=== PATIENT | female | born 1940 | race African-American/Black ===

== ENCOUNTER 2021-07-07 13:26 | Emergency (ER) | payer OTHER ==
[2021-07-07 13:33] VITALS: TEMP 98; BMI 21.9
[2021-07-07] MEDS ORDERED: SODIUM CHLORIDE 0.9% 500 ML INFUS.BAG IV ONE (14:37)
[2021-07-07] MEDS ORDERED: LOPERAMIDE HCL 2 MG CAPSULE PO ONE (14:38)
[2021-07-07] MEDS ORDERED: ONDANSETRON 4 MG/2 ML VIAL IVPUSH ONE (15:54)
[2021-07-07] MEDS ORDERED: LOPERAMIDE HCL 2 MG CAPSULE ONE (16:02)
[2021-07-07] MEDS ORDERED: ONDANSETRON 4 MG/2 ML VIAL ONE (16:34)
[2021-07-07 16:47] LABS: BASO % 0.6 % (0-2.0); EOS % 0.8 % (0-4.5); HEMATOCRIT 46.2 % (32.4-45.2); HEMOGLOBIN 14.9 GM/dL (10.7-15.3); LYMPH % 36.8 % (8-40); MCH 28.1 pg (25.7-33.7); MCHC 32.2 g/dl (32.0-36.0); MEAN CELL VOLUME 87.4 fl (80-96); MONO % 5.6 % (3.8-10.2); NEUT % 56.2 % (42.8-82.8); PLATELET COUNT 150 10^3/uL (134-434); RBC 5.29 M/mm3 (3.60-5.2); WHITE BLOOD COUNT 4.8 K/mm3 (4.0-10.0)
[2021-07-07 17:14] LABS: CHLORIDE 104 mmol/L (98-107); SODIUM 139 mmol/L (136-145)
[2021-07-07 17:16] LABS: ALBUMIN 4.2 g/dl (3.4-5.0); ANION GAP 8 MMOL/L (8-16); BLOOD UREA NITROGEN 9.1 mg/dL (7-18); CALCIUM 9.6 mg/dL (8.5-10.1); CO2 28 mmol/L (21-32)
[2021-07-07 17:17] LABS: GLUCOSE,RANDOM 79 mg/dL (74-106)
[2021-07-07 17:19] LABS: CREATININE 0.9 mg/dL (0.55-1.3); SGOT/AST 27 U/L (15-37); SGPT/ALT 30 U/L (13-61)
[2021-07-07 17:21] LABS: BILIRUBIN,TOTAL 0.6 mg/dL (0.2-1); TOT PROT 8.2 g/dl (6.4-8.2)
[2021-07-07 17:22] LABS: ALK PHOS 86 U/L (45-117)
[2021-07-07 19:46] VITALS: BP 155/75; PULSE 84
== END 2021-07-07 19:40 | disposition home or self-care (01) ==
LOC: JER 13:26
DX: R10.84 Generalized abdominal pain (principal); R19.7 Diarrhea, unspecified; R11.0 Nausea
CPT/HCPCS: 36415; 80053; 82550; 84484; 85025; 93005; 93010; 99284-25; C9803; U0003; U0005

== ENCOUNTER 2022-06-30 14:13 | Inpatient (IN) | payer OTHER ==
[2022-06-30 20:56] LABS: HEMATOCRIT 31.4 % (32.4-45.2); HEMOGLOBIN 9.5 GM/dL (10.7-15.3); MCH 24.6 pg (25.7-33.7); MCHC 30.3 g/dl (32.0-36.0); MEAN CELL VOLUME 81.1 fl (80-96); MEAN PLT VOLUME 8.1 fl (7.5-11.1); PLATELET COUNT 252 10^3/uL (134-434); RBC 3.87 M/mm3 (3.60-5.2); WHITE BLOOD COUNT 5.8 K/mm3 (4.0-10.0)
[2022-06-30 21:13] LABS: ALBUMIN 4.1 g/dl (3.4-5.0); BLOOD UREA NITROGEN 22.4 mg/dL (7-18); CALCIUM 9.4 mg/dL (8.5-10.1); MAGNESIUM 2.2 mg/dL (1.8-2.4)
[2022-06-30 21:16] LABS: CREATININE 1.2 mg/dL (0.55-1.3); PHOSPHOROUS 3.1 mg/dL (2.5-4.9)
[2022-06-30 21:18] LABS: BILIRUBIN,TOTAL 0.8 mg/dL (0.2-1); TOT PROT 7.8 g/dl (6.4-8.2)
[2022-06-30 22:41] LABS: EPI CELLS >36 /uL (0-25.1); HYALINE CASTS 2 /uL (0-3.1); PH,URINE 5.5 (5.0-8.0); URINE APPEARANCE CLEAR; URINE BACTERIA 429 /uL (0-1359); URINE BILIRUBIN NEGATIVE (NEGATIVE); URINE COLOR YELLOW; URINE GLUCOSE (UA) NEGATIVE (NEGATIVE); URINE KETONE TRACE (NEGATIVE); URINE LEUK ESTERASE 2+ (NEGATIVE); URINE NITRITE NEGATIVE (NEGATIVE); URINE PROTEIN 1+ (NEGATIVE); URINE WBC 62 /uL (0-25.8)
[2022-06-30 22:43] LABS: URINE RBC 19.4 /uL (0-23.9)
[2022-07-01] MEDS ORDERED: DOCUSATE SODIUM 100 MG CAPSULE (FP) PO PRN (00:13)
[2022-07-01] MEDS ORDERED: ALBUTEROL SO4 2.5/IPRATROPIUM 0.5 INH SOL 3 ML VIAL.NEB. NEB SCH (00:30)
[2022-07-01 00:32] LABS: INR 2.4 (0.83-1.09); PROTHROMBIN TIME (PATIENT) 27.9 SEC (9.7-13.0)
[2022-07-01 00:34] LABS: ACTIVATED PTT 37.4 SECONDS (25.2-36.5)
[2022-07-01] MEDS ORDERED: ACETAMINOPHEN INJECTION 100 ML IVPB ONE (02:27)
[2022-07-01] MEDS: ACETAMINOPHEN 1000 MG/100 ML BAG IVPB PRN ×2 (03:32→22:44)
[2022-07-01] MEDS: LIDOCAINE 5% TOPICAL PATCH TP SCH ×2 (03:37→10:02)
[2022-07-01] MEDS: MELATONIN 5 MG TABLETS PO PRN ×2 (03:38→22:55)
[2022-07-01] MEDS ORDERED: oxyCODONE HCL 5 MG TABLET PO ONE (05:22)
[2022-07-01] MEDS ORDERED: oxyCODONE HCL 5 MG TABLET ONE (05:26)
[2022-07-01] MEDS ORDERED: traMADol HCL 50 MG TABLET PO ONE (05:41)
[2022-07-01] MEDS ORDERED: FUROSEMIDE 40 MG TABLET (FP) ONE ×2 (09:14→10:31)
[2022-07-01] MEDS ORDERED: DIGOXIN 0.125 MG TABLET ONE ×2 (09:14→10:31)
[2022-07-01] MEDS: DIGOXIN 0.125 MG TABLET PO SCH (09:35)
[2022-07-01] MEDS: FUROSEMIDE 40 MG TABLET (FP) PO SCH (09:35)
[2022-07-01 09:58] LABS: INR 3.19 (0.83-1.09); PROTHROMBIN TIME (PATIENT) 37.1 SEC (9.7-13.0)
[2022-07-01] MEDS ORDERED: APIXABAN 5 MG TABLET PO SCH (10:00)
[2022-07-01 10:01] LABS: ACTIVATED PTT 40.5 SECONDS (25.2-36.5)
[2022-07-01] MEDS ORDERED: cefTRIAXone SODIUM 1 GM VIAL ONE (15:48)
[2022-07-01] MEDS: CEFTRIAXONE 1 GM in DEXTROSE 5%-WATER - 50 ML IVPB SCH (15:54)
[2022-07-01] MEDS: APIXABAN 5 MG TABLET PO SCH (22:55)
[2022-07-01] MEDS: ATORVASTATIN CA 40 MG TABLET (FP) PO SCH (22:55)
[2022-07-01] MEDS: LIDOCAINE PATCH REMOVAL MC SCH (22:56)
[2022-07-02 01:40] VITALS: BMI 22.4
[2022-07-02] MEDS ORDERED: OLANZapine 2.5 MG TABLET PO SCH (11:45)
[2022-07-02] MEDS: FUROSEMIDE 40 MG TABLET (FP) PO SCH ×2 (11:48→12:22)
[2022-07-02] MEDS: CEFTRIAXONE 1 GM in DEXTROSE 5%-WATER - 50 ML IVPB SCH (11:48)
[2022-07-02] MEDS: DIGOXIN 0.125 MG TABLET PO SCH (11:54)
[2022-07-02] MEDS: APIXABAN 5 MG TABLET PO SCH ×3 (11:54→21:24)
[2022-07-02] MEDS: LIDOCAINE 5% TOPICAL PATCH TP SCH (12:15)
[2022-07-02 14:59] LABS: HEMATOCRIT 31.8 % (32.4-45.2); HEMOGLOBIN 9.7 GM/dL (10.7-15.3); MCH 24.6 pg (25.7-33.7); MCHC 30.6 g/dl (32.0-36.0); MEAN CELL VOLUME 80.5 fl (80-96); MEAN PLT VOLUME 8.1 fl (7.5-11.1); PLATELET COUNT 253 10^3/uL (134-434); RBC 3.95 M/mm3 (3.60-5.2); WHITE BLOOD COUNT 5.2 K/mm3 (4.0-10.0)
[2022-07-02 15:34] LABS: INR 2.26 (0.83-1.09); PROTHROMBIN TIME (PATIENT) 26.2 SEC (9.7-13.0)
[2022-07-02 15:36] LABS: ACTIVATED PTT 36.5 SECONDS (25.2-36.5)
[2022-07-02 15:37] LABS: BLOOD UREA NITROGEN 15.1 mg/dL (7-18)
[2022-07-02 15:38] LABS: CALCIUM 9.4 mg/dL (8.5-10.1)
[2022-07-02 15:39] LABS: ALBUMIN 4.1 g/dl (3.4-5.0)
[2022-07-02 15:42] LABS: BILIRUBIN,TOTAL 0.9 mg/dL (0.2-1)
[2022-07-02] MEDS ORDERED: IRON SUCROSE INJECTION 200 MG in SODIUM CHLORIDE 90 ML IVPB ONE (17:00)
[2022-07-02] MEDS: DONEPEZIL HCL 5 MG TABLET (FP) PO SCH (17:24)
[2022-07-02] MEDS: ATORVASTATIN CA 40 MG TABLET (FP) PO SCH (21:25)
[2022-07-02] MEDS: QUEtiapine FUMARATE 25 MG TABLET PO SCH (21:26)
[2022-07-02] MEDS: MELATONIN 5 MG TABLETS PO PRN (21:27)
[2022-07-02] MEDS: LIDOCAINE PATCH REMOVAL MC SCH (21:35)
[2022-07-03] MEDS: APIXABAN 5 MG TABLET PO SCH ×2 (09:29→21:47)
[2022-07-03] MEDS: DONEPEZIL HCL 5 MG TABLET (FP) PO SCH (09:29)
[2022-07-03] MEDS: DIGOXIN 0.125 MG TABLET PO SCH (09:30)
[2022-07-03] MEDS: QUEtiapine FUMARATE 25 MG TABLET PO SCH ×2 (09:31→21:47)
[2022-07-03] MEDS: CEFTRIAXONE 1 GM in DEXTROSE 5%-WATER - 50 ML IVPB SCH (09:31)
[2022-07-03] MEDS: LIDOCAINE 5% TOPICAL PATCH TP SCH (09:31)
[2022-07-03] MEDS ORDERED: THIAMINE HCL 200 MG/2 ML VIAL IM SCH (10:00)
[2022-07-03 15:55] VITALS: RESP 18
[2022-07-03] MEDS: LIDOCAINE PATCH REMOVAL MC SCH (21:47)
[2022-07-03] MEDS: ATORVASTATIN CA 40 MG TABLET (FP) PO SCH (21:47)
[2022-07-03] MEDS: MELATONIN 5 MG TABLETS PO PRN (21:47)
[2022-07-04] MEDS ORDERED: LACTULOSE 20 GM/30 ML UDC (FOR ORAL USE ONLY) PO PRN (08:22)
[2022-07-04] MEDS: APIXABAN 5 MG TABLET PO SCH ×2 (10:05→12:29)
[2022-07-04] MEDS: QUEtiapine FUMARATE 25 MG TABLET PO SCH ×2 (10:05→12:31)
[2022-07-04] MEDS: DONEPEZIL HCL 5 MG TABLET (FP) PO SCH (10:05)
[2022-07-04] MEDS: DIGOXIN 0.125 MG TABLET PO SCH ×2 (10:05→12:30)
[2022-07-04] MEDS: LIDOCAINE 5% TOPICAL PATCH TP SCH (10:05)
[2022-07-04 15:48] VITALS: BP 122/64; PULSE 75; TEMP 98.6
[2022-07-04] MEDS ORDERED: POTASSIUM CHLORIDE TABS 20 MEQ TABLET.ER (FP) PO ONE (15:52)
[2022-07-04] MEDS ORDERED: FUROSEMIDE 20 MG TABLET (FP) PO ONE (15:52)
[2022-07-07 14:07] LABS: THYROID STIM IMMUNOGLOBULIN <0.10 IU/L (0.00-0.55)
== END 2022-07-04 18:32 | disposition home health service (06) | DRG 71 ==
LOC: JER 14:13 → JERBED 23:37 → J4W 07-01 20:54 → J5S 07-02 18:21 → J4W 07-02 18:22
PROVIDERS: ADMIT Internal Medicine; ATTEND Family Medicine
DX: G93.41 Metabolic encephalopathy (principal); D68.9 Coagulation defect, unspecified; I24.8 Other forms of acute ischemic heart disease; R07.9 Chest pain, unspecified; R00.2 Palpitations; R79.89 Other specified abnormal findings of blood chemistry; I48.91 Unspecified atrial fibrillation; I10 Essential (primary) hypertension; E78.5 Hyperlipidemia, unspecified
CPT/HCPCS: 0241U-QW; 36415; 70450-TC; 70551-TC; 71045-TC-FY; 71046-TC-FY; 72070-TC-FY; 72100-TC-FY; 80053; 80061; 80162; 81003; 82140; 82607; 82728; 83036; 83540; 83550; 83735; 84100; 84439; 84443; 84445; 84481; 84484; 85027; 85379; 85610; 85730; 87086; 93005; 93010; 99285-25; J1756

== ENCOUNTER 2022-11-26 11:24 | Day surgery (SDC) | payer OTHER ==
[2022-11-26] MEDS ORDERED: FERRIC CARBOXYMALTOSE 750 MG in SODIUM CHLORIDE 250 ML IVPB ONE (12:15)
[2022-11-26 13:46] VITALS: BP 155/54; PULSE 74; RESP 18; TEMP 98.5
== END 2022-11-26 13:57 | disposition home or self-care (01) ==
LOC: FM/S 11:24 → FINFUSION 11:24
PROVIDERS: ATTEND Family Medicine
PROC: 3E033GC Introduction of Other Therapeutic Substance into Peripheral Vein, Percutaneous Approach (ICD-10-PCS; principal; 2022-11-26)
DX: D50.9 Iron deficiency anemia, unspecified (principal)
CPT/HCPCS: 96365; J1439

== ENCOUNTER 2022-12-03 11:13 | Day surgery (SDC) | payer OTHER ==
[2022-12-03] MEDS ORDERED: FERRIC CARBOXYMALTOSE 750 MG in SODIUM CHLORIDE 250 ML IVPB ONE (12:00)
[2022-12-03 12:34] VITALS: BP 152/72; PULSE 71; RESP 18; TEMP 97.4
== END 2022-12-03 13:30 | disposition home or self-care (01) ==
LOC: FINFUSION 11:13 → FM/S 11:15 → FINFUSION 13:30
PROVIDERS: ATTEND Family Medicine
PROC: 3E033GC Introduction of Other Therapeutic Substance into Peripheral Vein, Percutaneous Approach (ICD-10-PCS; principal; 2022-12-03)
DX: D50.9 Iron deficiency anemia, unspecified (principal); E61.1 Iron deficiency
CPT/HCPCS: 96365; J1439

== ENCOUNTER 2024-04-04 18:34 | Inpatient (IN) | payer OTHER ==
[2024-04-04] MEDS ORDERED: ACETAMINOPHEN 325 MG TABLET (FP) ONE (20:36)
[2024-04-04] MEDS ORDERED: ASPIRIN 325 MG TABLET ONE (20:43)
[2024-04-04 20:52] LABS: INR 1.19 (0.83-1.09); PROTHROMBIN TIME (PATIENT) 13.6 SEC (9.7-13.0)
[2024-04-04 20:55] LABS: ACTIVATED PTT 32.5 SECONDS (25.2-36.5)
[2024-04-04 21:01] LABS: CHLORIDE 86 mmol/L (98-107); POTASSIUM 4.6 mmol/L (3.5-5.1); SODIUM 123 mmol/L (136-145)
[2024-04-04 21:02] LABS: ANION GAP 6 mmol/L (4-13); CALCIUM 9.1 mg/dL (8.5-10.1); CO2 30 mmol/L (21-32)
[2024-04-04 21:03] LABS: ALBUMIN 3.2 g/dl (3.4-5.0)
[2024-04-04 21:05] LABS: BLOOD UREA NITROGEN 11.4 mg/dL (7-18); GLUCOSE,RANDOM 99 mg/dL (74-106)
[2024-04-04 21:06] LABS: CREATININE 0.6 mg/dL (0.55-1.3); SGOT/AST 38 U/L (15-37); SGPT/ALT 38 U/L (13-61)
[2024-04-04 21:09] LABS: CHOLESTEROL 171 mg/dL (50-200)
[2024-04-04] MEDS: ASPIRIN 325 MG TABLET PO ONE (21:09)
[2024-04-04 21:10] LABS: ALK PHOS 136 U/L (45-117); BILIRUBIN,TOTAL 0.7 mg/dL (0.2-1); HDL CHOLESTEROL 90 mg/dL (40-60); LDL CHOLESTEROL (ONLY SJRH) 66 mg/dL (5-100)
[2024-04-04 21:37] LABS: HEMATOCRIT 26.8 % (32.4-45.2); HEMOGLOBIN 8.3 GM/dL (10.7-15.3); MCH 25.6 pg (25.7-33.7); MCHC 30.9 g/dl (32.0-36.0); MEAN CELL VOLUME 82.8 fl (80-96); PLATELET COUNT 311 10^3/uL (134-434); RBC 3.24 M/mm3 (3.60-5.2); RDW 18.9 % (11.6-15.6); WHITE BLOOD COUNT 7.1 K/mm3 (4.0-10.0)
[2024-04-04 22:18] LABS: URINE APPEARANCE CLEAR; URINE BILIRUBIN NEGATIVE (NEGATIVE); URINE COLOR YELLOW; URINE GLUCOSE (UA) NEGATIVE (NEGATIVE); URINE KETONE NEGATIVE (NEGATIVE)
[2024-04-04 22:19] LABS: EPI CELLS 19.2 /uL (0-25.1); HYALINE CASTS 1.09 /uL (0-3.1); URINE LEUK ESTERASE NEGATIVE (NEGATIVE); URINE NITRITE NEGATIVE (NEGATIVE); URINE PROTEIN 1+ (NEGATIVE); URINE RBC 45.4 /uL (0-23.9); URINE WBC 92.7 /uL (0-25.8)
[2024-04-04 22:20] LABS: URINE BACTERIA 7.5 /uL (0-1359)
[2024-04-05 00:35] LABS: POTASSIUM 4.8 mmol/L (3.5-5.1)
[2024-04-05 00:37] LABS: BLOOD UREA NITROGEN 11.3 mg/dL (7-18); CALCIUM 9.2 mg/dL (8.5-10.1)
[2024-04-05 00:41] LABS: CREATININE 0.6 mg/dL (0.55-1.3)
[2024-04-05 02:10] LABS: N-TERMINAL BNP 6073.1 pg/ml (5-450)
[2024-04-05] MEDS ORDERED: FUROSEMIDE 40 MG/4 ML INJECTABLE VIAL ONE ×2 (02:42→04:35)
[2024-04-05] MEDS: FUROSEMIDE 100 MG/10 ML INJECTABLE VIAL IVPB ONE (02:46)
[2024-04-05] MEDS: FUROSEMIDE 40 MG/4 ML INJECTABLE VIAL IVPB ONE (04:38)
[2024-04-05 08:05] LABS: POTASSIUM 4.5 mmol/L (3.5-5.1)
[2024-04-05 08:16] LABS: HEMATOCRIT 30.4 % (32.4-45.2); HEMOGLOBIN 9.5 GM/dL (10.7-15.3); MCH 25.9 pg (25.7-33.7); MCHC 31.3 g/dl (32.0-36.0); MEAN CELL VOLUME 82.7 fl (80-96); MEAN PLT VOLUME 7.7 fl (7.5-11.1); PLATELET COUNT 296 10^3/uL (134-434); RBC 3.68 M/mm3 (3.60-5.2); RDW 18.8 % (11.6-15.6); WHITE BLOOD COUNT 5.4 K/mm3 (4.0-10.0)
[2024-04-05 08:46] LABS: CALCIUM 9.5 mg/dL (8.5-10.1); CREATININE 0.6 mg/dL (0.55-1.3)
[2024-04-05 08:47] LABS: PHOSPHOROUS 3.7 mg/dL (2.5-4.9)
[2024-04-05 08:49] LABS: MAGNESIUM 1.8 mg/dL (1.8-2.4)
[2024-04-05 09:52] LABS: ANISOCYTOSIS 3+; MACROCYTOSIS 0
[2024-04-05] MEDS: DONEPEZIL HCL 5 MG TABLET (FP) PO SCH (11:15)
[2024-04-05] MEDS: DIGOXIN 0.125 MG TABLET PO SCH (11:15)
[2024-04-05] MEDS: FUROSEMIDE 40 MG/4 ML INJECTABLE VIAL IVPUSH SCH (11:16)
[2024-04-05] MEDS: ATORVASTATIN CA 40 MG TABLET (FP) PO SCH (21:57)
[2024-04-05] MEDS ORDERED: ATORVASTATIN CA 40 MG TABLET (FP) PO SCH (22:00)
[2024-04-06] MEDS: APIXABAN 5 MG TABLET PO SCH (10:06)
[2024-04-06] MEDS: PANTOPRAZOLE 40 MG TABLET PO SCH (10:07)
[2024-04-06 13:27] LABS: HEMOGLOBIN 9.2 GM/dL (10.7-15.3); MCH 25.5 pg (25.7-33.7); MCHC 30.7 g/dl (32.0-36.0); MEAN CELL VOLUME 83.2 fl (80-96); MEAN PLT VOLUME 7.4 fl (7.5-11.1); PLATELET COUNT 354 10^3/uL (134-434); RBC 3.61 M/mm3 (3.60-5.2); RDW 18.6 % (11.6-15.6)
[2024-04-06 13:29] LABS: POTASSIUM 4.6 mmol/L (3.5-5.1)
[2024-04-06 13:36] LABS: CALCIUM 9.2 mg/dL (8.5-10.1)
[2024-04-06 13:38] LABS: ALBUMIN 3.4 g/dl (3.4-5.0); BLOOD UREA NITROGEN 13.2 mg/dL (7-18)
[2024-04-06 13:40] LABS: CREATININE 0.7 mg/dL (0.55-1.3)
[2024-04-06 13:43] LABS: BILIRUBIN,TOTAL 0.7 mg/dL (0.2-1); TOT PROT 7.5 g/dl (6.4-8.2)
[2024-04-06 14:08] LABS: ANISOCYTOSIS 2+; MACROCYTOSIS 0; OVALOCYTE 1+; TARGET CELLS 2+
[2024-04-06 14:59] LABS: POTASSIUM 4.5 mmol/L (3.5-5.1)
[2024-04-06 15:01] LABS: BLOOD UREA NITROGEN 12.1 mg/dL (7-18); CALCIUM 8.8 mg/dL (8.5-10.1)
[2024-04-06 15:04] LABS: CREATININE 0.7 mg/dL (0.55-1.3)
[2024-04-07 08:41] LABS: POTASSIUM 5.2 mmol/L (3.5-5.1)
[2024-04-07 08:43] LABS: CALCIUM 8.4 mg/dL (8.5-10.1)
[2024-04-07 08:44] LABS: ALBUMIN 2.9 g/dl (3.4-5.0)
[2024-04-07 08:47] LABS: CREATININE 0.7 mg/dL (0.55-1.3)
[2024-04-07 08:48] LABS: BILIRUBIN,TOTAL 0.7 mg/dL (0.2-1); TOT PROT 6.5 g/dl (6.4-8.2)
[2024-04-07 08:54] LABS: BLOOD UREA NITROGEN 14.4 mg/dL (7-18)
[2024-04-07 09:45] LABS: HEMATOCRIT 30.9 % (32.4-45.2); HEMOGLOBIN 9.6 GM/dL (10.7-15.3); MCH 25.6 pg (25.7-33.7); MCHC 30.9 g/dl (32.0-36.0); MEAN CELL VOLUME 82.9 fl (80-96); MEAN PLT VOLUME 7.4 fl (7.5-11.1); PLATELET COUNT 292 10^3/uL (134-434); RBC 3.73 M/mm3 (3.60-5.2); RDW 18.7 % (11.6-15.6); WHITE BLOOD COUNT 4.4 K/mm3 (4.0-10.0)
[2024-04-07 10:04] LABS: ANISOCYTOSIS 3+; MACROCYTOSIS 0
[2024-04-07] MEDS: SODIUM CHLORIDE 1 GM TABLET PO SCH (15:44)
[2024-04-08] MEDS: MELATONIN 5 MG TABLETS PO ONE (03:03)
[2024-04-08] MEDS: ACETAMINOPHEN 1000 MG/100 ML BAG IVPB ONE (03:03)
[2024-04-08 09:17] LABS: HEMATOCRIT 24.7 % (32.4-45.2); HEMOGLOBIN 7.8 GM/dL (10.7-15.3); MCH 25.6 pg (25.7-33.7); MCHC 31.6 g/dl (32.0-36.0); MEAN CELL VOLUME 81.1 fl (80-96); MEAN PLT VOLUME 7.3 fl (7.5-11.1); PLATELET COUNT 296 10^3/uL (134-434); RBC 3.04 M/mm3 (3.60-5.2); RDW 18.8 % (11.6-15.6); WHITE BLOOD COUNT 4.8 K/mm3 (4.0-10.0)
[2024-04-08 09:54] LABS: POTASSIUM 4.5 mmol/L (3.5-5.1)
[2024-04-08 10:25] LABS: BLOOD UREA NITROGEN 14.6 mg/dL (7-18); CALCIUM 8.5 mg/dL (8.5-10.1)
[2024-04-08 10:29] LABS: CREATININE 0.7 mg/dL (0.55-1.3)
[2024-04-08] MEDS: IRON SUCROSE INJECTION 200 MG in SODIUM CHLORIDE 100 ML IVPB ONE (12:07)
[2024-04-08] MEDS: SODIUM CHLORIDE 1 GM TABLET PO ONE (18:30)
[2024-04-08] MEDS: POLYETHYLENE GLYCOL (HEALTHYLAX) 3350 17 GM PACKET PO SCH (21:42)
[2024-04-09 09:46] LABS: HEMATOCRIT 34.7 % (32.4-45.2); HEMOGLOBIN 10.9 GM/dL (10.7-15.3); MCH 26.1 pg (25.7-33.7); MCHC 31.5 g/dl (32.0-36.0); MEAN PLT VOLUME 7.1 fl (7.5-11.1); PLATELET COUNT 334 10^3/uL (134-434); RBC 4.19 M/mm3 (3.60-5.2); RDW 18.2 % (11.6-15.6); WHITE BLOOD COUNT 5.8 K/mm3 (4.0-10.0)
[2024-04-09 10:36] LABS: ANISOCYTOSIS 0; MACROCYTOSIS 0
[2024-04-09 10:50] LABS: POTASSIUM 4.7 mmol/L (3.5-5.1)
[2024-04-09 11:00] LABS: BLOOD UREA NITROGEN 13.2 mg/dL (7-18); CALCIUM 8.7 mg/dL (8.5-10.1)
[2024-04-09 11:04] LABS: CREATININE 0.7 mg/dL (0.55-1.3)
[2024-04-10 09:20] LABS: BASO % 1.3 % (0-2.0); EOS % 1.1 % (0-4.5); HEMATOCRIT 31.7 % (32.4-45.2); HEMOGLOBIN 10.1 GM/dL (10.7-15.3); LYMPH % 17.7 % (8-40); MCH 26.2 pg (25.7-33.7); MCHC 31.7 g/dl (32.0-36.0); MEAN CELL VOLUME 82.8 fl (80-96); MEAN PLT VOLUME 7.1 fl (7.5-11.1); MONO % 10.2 % (3.8-10.2); NEUT % 69.7 % (42.8-82.8); PLATELET COUNT 306 10^3/uL (134-434); RBC 3.84 M/mm3 (3.60-5.2); RDW 18.5 % (11.6-15.6)
[2024-04-10 09:31] LABS: POTASSIUM 4.1 mmol/L (3.5-5.1)
[2024-04-10 09:34] LABS: ALBUMIN 2.9 g/dl (3.4-5.0); CALCIUM 8.7 mg/dL (8.5-10.1)
[2024-04-10 09:38] LABS: CREATININE 0.7 mg/dL (0.55-1.3)
[2024-04-10 09:39] LABS: BILIRUBIN,TOTAL 0.7 mg/dL (0.2-1); TOT PROT 6.3 g/dl (6.4-8.2)
[2024-04-10] MEDS: TORSEMIDE 20 MG TABLET (FP) PO SCH (11:32)
[2024-04-10] MEDS: IRON SUCROSE INJECTION 200 MG in SODIUM CHLORIDE 100 ML IVPB ONE (15:02)
[2024-04-11 06:38] LABS: BLOOD UREA NITROGEN 12.2 mg/dL (7-18); CALCIUM 8.6 mg/dL (8.5-10.1)
[2024-04-11 06:42] LABS: CREATININE 0.7 mg/dL (0.55-1.3)
[2024-04-12 08:31] LABS: BASO % 1.3 % (0-2.0); EOS % 0.9 % (0-4.5); HEMATOCRIT 33.5 % (32.4-45.2); HEMOGLOBIN 10.4 GM/dL (10.7-15.3); LYMPH % 15.2 % (8-40); MCH 25.8 pg (25.7-33.7); MCHC 31.2 g/dl (32.0-36.0); MEAN CELL VOLUME 82.7 fl (80-96); MEAN PLT VOLUME 7.2 fl (7.5-11.1); MONO % 10.1 % (3.8-10.2); NEUT % 72.5 % (42.8-82.8); PLATELET COUNT 307 10^3/uL (134-434); RBC 4.05 M/mm3 (3.60-5.2); RDW 19.9 % (11.6-15.6); WHITE BLOOD COUNT 5.4 K/mm3 (4.0-10.0)
[2024-04-12 08:39] LABS: POTASSIUM 3.8 mmol/L (3.5-5.1)
[2024-04-12 08:41] LABS: BLOOD UREA NITROGEN 13.4 mg/dL (7-18); CALCIUM 8.9 mg/dL (8.5-10.1)
[2024-04-12 08:45] LABS: CREATININE 0.7 mg/dL (0.55-1.3)
[2024-04-12 10:06] VITALS: BMI 31.9
[2024-04-12] MEDS: SODIUM CHLORIDE 1 GM TABLET PO SCH (13:24)
[2024-04-12] MEDS: ACETAMINOPHEN 325 MG TABLET (FP) PO PRN (17:08)
[2024-04-13] MEDS ORDERED: TORSEMIDE 20 MG TABLET (FP) PO SCH (08:43)
[2024-04-13] MEDS: TORSEMIDE 20 MG TABLET (FP) PO SCH (09:32)
[2024-04-13] MEDS: FUROSEMIDE 40 MG/4 ML INJECTABLE VIAL IVPUSH ONE (09:37)
[2024-04-13 09:50] VITALS: PULSE 78
[2024-04-13 11:21] VITALS: BP 115/53; RESP 14; TEMP 98.4
== END 2024-04-13 16:23 | DRG 291 ==
LOC: JER 18:34 → OBSVTOIN 22:24 → JERBED 22:24 → J4S 04-05 08:42
PROVIDERS: ADMIT Internal Medicine; ATTEND Family Medicine
PROC: 30233N1 Transfusion of Nonautologous Red Blood Cells into Peripheral Vein, Percutaneous Approach (ICD-10-PCS; principal; 2024-04-08)
DX: I11.0 Hypertensive heart disease with heart failure (principal); I50.33 Acute on chronic diastolic (congestive) heart failure; J18.9 Pneumonia, unspecified organism; E87.1 Hypo-osmolality and hyponatremia; G45.9 Transient cerebral ischemic attack, unspecified; E78.5 Hyperlipidemia, unspecified; I48.91 Unspecified atrial fibrillation; I25.10 Atherosclerotic heart disease of native coronary artery without angina pectoris; D64.9 Anemia, unspecified; K59.00 Constipation, unspecified; F01.50 Vascular dementia, unspecified severity, without behavioral disturbance, psychotic disturbance, mood disturbance, and anxiety
CPT/HCPCS: 0241U-QW; 36415; 36430; 70450-TC; 70496-TC; 70498-TC; 70551-TC; 71045-TC-FY; 71250-TC; 80048; 80053; 80061; 81003; 82140; 82272; 82436; 82533; 82550; 82607; 82728; 82962; 83036; 83540; 83550; 83735; 83880; 83930; 83935; 84100; 84133; 84300; 84484; 85025; 85027; 85610; 85730; 86850; 86900; 86901; 86922; 93005; 93010; 93306-TC; 93308; 99285-25; J0131; J1756; P9058; Q9967

== ENCOUNTER 2024-05-29 13:23 | Inpatient (IN) | payer OTHER ==
[2024-05-29 15:44] LABS: BASO % 0.7 % (0-2.0); EOS % 0.4 % (0-4.5); HEMATOCRIT 35.5 % (32.4-45.2); HEMOGLOBIN 10.8 GM/dL (10.7-15.3); LYMPH % 21.1 % (8-40); MCH 25.6 pg (25.7-33.7); MCHC 30.6 g/dl (32.0-36.0); MEAN CELL VOLUME 83.8 fl (80-96); MEAN PLT VOLUME 9.1 fl (7.5-11.1); MONO % 9.4 % (3.8-10.2); NEUT % 68.4 % (42.8-82.8); PLATELET COUNT 182 10^3/uL (134-434); RBC 4.23 M/mm3 (3.60-5.2); RDW 20.2 % (11.6-15.6); WHITE BLOOD COUNT 7.8 K/mm3 (4.0-10.0)
[2024-05-29 15:51] LABS: INR 1.96 (0.83-1.09); PROTHROMBIN TIME (PATIENT) 22.1 SEC (9.7-13.0)
[2024-05-29 15:54] LABS: ACTIVATED PTT 38.9 SECONDS (25.2-36.5)
[2024-05-29 16:11] LABS: CHLORIDE 94 mmol/L (98-107); SODIUM 138 mmol/L (136-145)
[2024-05-29 16:13] LABS: CALCIUM 9.3 mg/dL (8.5-10.1)
[2024-05-29 16:14] LABS: ALBUMIN 3.6 g/dl (3.4-5.0); BLOOD UREA NITROGEN 20.2 mg/dL (7-18); CO2 39 mmol/L (21-32); GLUCOSE,RANDOM 87 mg/dL (74-106); MAGNESIUM 2.1 mg/dL (1.8-2.4)
[2024-05-29 16:17] LABS: PHOSPHOROUS 4.2 mg/dL (2.5-4.9)
[2024-05-29 16:19] LABS: TOT PROT 8.4 g/dl (6.4-8.2)
[2024-05-29 16:20] LABS: ALK PHOS 109 U/L (45-117)
[2024-05-29 16:43] LABS: ANION GAP 5 mmol/L (4-13); POTASSIUM 7.4 mmol/L (3.5-5.1); SGOT/AST 119 U/L (15-37); SGPT/ALT 27 U/L (13-61)
[2024-05-29] MEDS ORDERED: HALOPERIDOL LACTATE 5 MG/ML ONE ×2 (19:12→20:51)
[2024-05-29] MEDS: HALOPERIDOL LACTATE 5 MG/ML IM ONE ×2 (19:19→21:02)
[2024-05-29] MEDS ORDERED: MIDAZOLAM HCL 2 MG/2 ML SINGLE DOSE VIAL ONE (21:08)
[2024-05-29] MEDS: MIDAZOLAM HCL 2 MG/2 ML SINGLE DOSE VIAL IM ONE (22:15)
[2024-05-30 00:21] LABS: URINE APPEARANCE CLEAR; URINE BILIRUBIN NEGATIVE (NEGATIVE); URINE COLOR YELLOW; URINE GLUCOSE (UA) NEGATIVE (NEGATIVE); URINE KETONE TRACE (NEGATIVE); URINE LEUK ESTERASE NEGATIVE (NEGATIVE); URINE NITRITE NEGATIVE (NEGATIVE); URINE PROTEIN TRACE (NEGATIVE)
[2024-05-30 03:15] LABS: POTASSIUM 3.6 mmol/L (3.5-5.1)
[2024-05-30 03:16] LABS: CALCIUM 9.4 mg/dL (8.5-10.1)
[2024-05-30 03:17] LABS: BLOOD UREA NITROGEN 21.9 mg/dL (7-18)
[2024-05-30] MEDS ORDERED: ACETAMINOPHEN 325 MG TABLET (FP) PO PRN (04:29)
[2024-05-30] MEDS ORDERED: DOCUSATE SODIUM 100 MG CAPSULE (FP) PO PRN (04:29)
[2024-05-30] MEDS ORDERED: POLYETHYLENE GLYCOL (HEALTHYLAX) 3350 17 GM PACKET PO PRN (04:38)
[2024-05-30 07:42] LABS: BASO % 0.6 % (0-2.0); EOS % 0.2 % (0-4.5); HEMATOCRIT 35.1 % (32.4-45.2); LYMPH % 11.9 % (8-40); MCH 26.3 pg (25.7-33.7); MCHC 31.2 g/dl (32.0-36.0); MEAN CELL VOLUME 84.3 fl (80-96); MEAN PLT VOLUME 9.2 fl (7.5-11.1); MONO % 5.9 % (3.8-10.2); NEUT % 81.4 % (42.8-82.8); PLATELET COUNT 173 10^3/uL (134-434); RBC 4.16 M/mm3 (3.60-5.2); WHITE BLOOD COUNT 7.9 K/mm3 (4.0-10.0)
[2024-05-30 07:53] LABS: CHLORIDE 96 mmol/L (98-107); SODIUM 144 mmol/L (136-145)
[2024-05-30 07:57] LABS: BLOOD UREA NITROGEN 23.7 mg/dL (7-18); GLUCOSE,RANDOM 95 mg/dL (74-106)
[2024-05-30 07:58] LABS: CALCIUM 10.2 mg/dL (8.5-10.1); CO2 36 mmol/L (21-32)
[2024-05-30 07:59] LABS: MAGNESIUM 1.7 mg/dL (1.8-2.4)
[2024-05-30 08:00] LABS: CREATININE 1.1 mg/dL (0.55-1.3)
[2024-05-30 08:01] LABS: PHOSPHOROUS 3.6 mg/dL (2.5-4.9)
[2024-05-30 08:06] LABS: N-TERMINAL BNP 8183.5 pg/ml (5-450)
[2024-05-30 08:07] LABS: ANION GAP 11 mmol/L (4-13); POTASSIUM 2.5 mmol/L (3.5-5.1)
[2024-05-30] MEDS ORDERED: DIGOXIN 0.125 MG TABLET ONE (10:17)
[2024-05-30] MEDS ORDERED: PANTOPRAZOLE 40 MG TABLET PO ONE (10:17)
[2024-05-30] MEDS ORDERED: APIXABAN 5 MG TABLET ONE (10:17)
[2024-05-30] MEDS: DIGOXIN 0.125 MG TABLET PO SCH (10:38)
[2024-05-30] MEDS: TORSEMIDE 20 MG TABLET (FP) PO SCH (10:38)
[2024-05-30] MEDS: PANTOPRAZOLE 40 MG TABLET PO SCH (10:38)
[2024-05-30] MEDS: APIXABAN 5 MG TABLET PO SCH ×2 (10:38→21:53)
[2024-05-30] MEDS ORDERED: MAGNESIUM SULFATE IN WATER 2 GM/50 ML IVPB IVPB ONE (12:44)
[2024-05-30] MEDS ORDERED: KCL 10 MEQ IVPB 10 MEQ/100 ML INFUS.BAG IVPB ONE (12:44)
[2024-05-30] MEDS: POTASSIUM CHLORIDE ORAL LIQUID 20 MEQ/15 ML PO ONE (12:57)
[2024-05-30 14:02] LABS: VENOUS BASE EXCESS 13.3 mmol/L (-2-2); VENOUS O2 SATURATION 19.9 % (70-80)
[2024-05-30] MEDS: MAGNESIUM 2GM/50ML STERILE WATER IVPB IVPB ONE (14:09)
[2024-05-30] MEDS: KCL 10 MEQ IVPB 10 MEQ/100 ML INFUS.BAG IVPB SCH ×2 (15:31→20:29)
[2024-05-30] MEDS: CEFTRIAXONE 1 G/50 ML PREMIX 50 ML IVPB SCH (17:02)
[2024-05-30] MEDS ORDERED: POTASSIUM CHLORIDE ORAL LIQUID 20 MEQ/15 ML PO ONE (20:00)
[2024-05-30] MEDS: ATORVASTATIN CA 40 MG TABLET (FP) PO SCH (21:51)
[2024-05-30] MEDS: MELATONIN 5 MG TABLETS PO PRN (21:53)
[2024-05-31] MEDS: POTASSIUM CHLORIDE ORAL LIQUID 20 MEQ/15 ML PO ONE ×2 (00:20→17:26)
[2024-05-31 08:32] LABS: HEMATOCRIT 30.6 % (32.4-45.2); HEMOGLOBIN 9.5 GM/dL (10.7-15.3); MCH 26.3 pg (25.7-33.7); MCHC 31.1 g/dl (32.0-36.0); MEAN CELL VOLUME 84.5 fl (80-96); MEAN PLT VOLUME 9.2 fl (7.5-11.1); PLATELET COUNT 149 10^3/uL (134-434); RBC 3.62 M/mm3 (3.60-5.2); RDW 19.7 % (11.6-15.6); WHITE BLOOD COUNT 7.8 K/mm3 (4.0-10.0)
[2024-05-31 08:46] LABS: POTASSIUM 3.3 mmol/L (3.5-5.1)
[2024-05-31 08:50] LABS: ALBUMIN 3.7 g/dl (3.4-5.0); BLOOD UREA NITROGEN 22.7 mg/dL (7-18); CALCIUM 9.8 mg/dL (8.5-10.1); MAGNESIUM 2.1 mg/dL (1.8-2.4)
[2024-05-31 08:51] LABS: CREATININE 0.9 mg/dL (0.55-1.3)
[2024-05-31 08:52] LABS: BILIRUBIN,TOTAL 1.3 mg/dL (0.2-1); TOT PROT 7.4 g/dl (6.4-8.2)
[2024-05-31] MEDS: KCL 10 MEQ IVPB 10 MEQ/100 ML INFUS.BAG IVPB SCH (17:26)
[2024-05-31] MEDS: HYDROCORTISONE ACETATE 25 MG/SUPP.RECT RC SCH (22:41)
[2024-06-01 08:39] LABS: BASO % 0.3 % (0-2.0); EOS % 0.3 % (0-4.5); HEMATOCRIT 31.3 % (32.4-45.2); HEMOGLOBIN 9.7 GM/dL (10.7-15.3); LYMPH % 13.6 % (8-40); MCH 26.3 pg (25.7-33.7); MCHC 30.9 g/dl (32.0-36.0); MONO % 9.7 % (3.8-10.2); NEUT % 76.1 % (42.8-82.8); PLATELET COUNT 173 10^3/uL (134-434); RBC 3.68 M/mm3 (3.60-5.2); RDW 20.6 % (11.6-15.6); WHITE BLOOD COUNT 8.6 K/mm3 (4.0-10.0)
[2024-06-01 08:41] LABS: POTASSIUM 3.5 mmol/L (3.5-5.1)
[2024-06-01 08:51] LABS: BLOOD UREA NITROGEN 21.2 mg/dL (7-18)
[2024-06-01 08:54] LABS: CREATININE 0.9 mg/dL (0.55-1.3)
[2024-06-01 08:55] LABS: BILIRUBIN,TOTAL 1.4 mg/dL (0.2-1); TOT PROT 7.9 g/dl (6.4-8.2)
[2024-06-01 11:14] LABS: ANISOCYTOSIS 2+; MACROCYTOSIS 0; TARGET CELLS 1+
[2024-06-01] MEDS: POTASSIUM CHLORIDE ORAL LIQUID 20 MEQ/15 ML PO ONE (11:26)
[2024-06-03] MEDS: FUROSEMIDE 40 MG TABLET (FP) PO SCH (09:58)
[2024-06-03] MEDS: DIGOXIN 0.125 MG TABLET PO SCH (09:58)
[2024-06-03 11:15] VITALS: BMI 20.2
[2024-06-03] MEDS: CEFUROXIME AXETIL 500 MG TABLET PO SCH (11:28)
[2024-06-03] MEDS: POLYETHYLENE GLYCOL (HEALTHYLAX) 3350 17 GM PACKET PO SCH (13:36)
[2024-06-03 15:09] LABS: BASO % 0.5 % (0-2.0); EOS % 1.9 % (0-4.5); HEMATOCRIT 31.5 % (32.4-45.2); HEMOGLOBIN 9.9 GM/dL (10.7-15.3); LYMPH % 21.3 % (8-40); MCH 26.7 pg (25.7-33.7); MCHC 31.5 g/dl (32.0-36.0); MEAN CELL VOLUME 84.7 fl (80-96); MEAN PLT VOLUME 8.6 fl (7.5-11.1); MONO % 8.7 % (3.8-10.2); NEUT % 67.6 % (42.8-82.8); PLATELET COUNT 196 10^3/uL (134-434); RBC 3.72 M/mm3 (3.60-5.2); RDW 20.3 % (11.6-15.6); WHITE BLOOD COUNT 6.5 K/mm3 (4.0-10.0)
[2024-06-03 15:12] LABS: INR 1.42 (0.83-1.09); PROTHROMBIN TIME (PATIENT) 15.9 SEC (9.7-13.0)
[2024-06-03 15:48] LABS: POTASSIUM 3.5 mmol/L (3.5-5.1)
[2024-06-03 15:52] LABS: ALBUMIN 3.5 g/dl (3.4-5.0); BLOOD UREA NITROGEN 11.6 mg/dL (7-18); CALCIUM 9.1 mg/dL (8.5-10.1)
[2024-06-03 15:56] LABS: CREATININE 0.8 mg/dL (0.55-1.3)
[2024-06-03 15:58] LABS: TOT PROT 7.1 g/dl (6.4-8.2)
[2024-06-03 15:59] LABS: BILIRUBIN,TOTAL 1.4 mg/dL (0.2-1)
[2024-06-03 17:13] LABS: BF WBC & OTHER NUCLEATED CELLS 407 /mm3
[2024-06-03 17:54] LABS: BODY FLUID MESOTHELIAL 7 %; BODY FLUID MONOCYTE 17 %
[2024-06-04 07:06] LABS: EOS % 1.7 % (0-4.5); HEMATOCRIT 33.1 % (32.4-45.2); HEMOGLOBIN 10.4 GM/dL (10.7-15.3); LYMPH % 26.2 % (8-40); MCH 26.8 pg (25.7-33.7); MCHC 31.5 g/dl (32.0-36.0); MEAN CELL VOLUME 85.3 fl (80-96); MEAN PLT VOLUME 8.8 fl (7.5-11.1); MONO % 10.4 % (3.8-10.2); NEUT % 60.7 % (42.8-82.8); PLATELET COUNT 196 10^3/uL (134-434); RBC 3.88 M/mm3 (3.60-5.2); RDW 20.1 % (11.6-15.6); WHITE BLOOD COUNT 6.1 K/mm3 (4.0-10.0)
[2024-06-04 07:23] LABS: POTASSIUM 3.5 mmol/L (3.5-5.1)
[2024-06-04 07:26] LABS: ALBUMIN 3.4 g/dl (3.4-5.0)
[2024-06-04 07:27] LABS: BLOOD UREA NITROGEN 11.3 mg/dL (7-18)
[2024-06-04 07:30] LABS: CREATININE 0.8 mg/dL (0.55-1.3)
[2024-06-04 07:31] LABS: BILIRUBIN,TOTAL 1.4 mg/dL (0.2-1); TOT PROT 7.1 g/dl (6.4-8.2)
[2024-06-05] MEDS: HYDROCORTISONE ACETATE 25 MG/SUPP.RECT RC SCH (22:18)
[2024-06-05] MEDS: CEFUROXIME AXETIL 500 MG TABLET PO SCH (22:18)
[2024-06-05] MEDS: APIXABAN 5 MG TABLET PO SCH (22:19)
[2024-06-05] MEDS: ATORVASTATIN CA 40 MG TABLET (FP) PO SCH (22:20)
[2024-06-05] MEDS: ACETAMINOPHEN 325 MG TABLET (FP) PO PRN (23:14)
[2024-06-05] MEDS: MELATONIN 5 MG TABLETS PO PRN (23:15)
[2024-06-06] MEDS: PANTOPRAZOLE 40 MG TABLET PO SCH (11:31)
[2024-06-06] MEDS: metoPROLOL SUCCINATE 25 MG TAB.SR.24H (FP) PO SCH (11:31)
[2024-06-06] MEDS: FUROSEMIDE 40 MG TABLET (FP) PO SCH (11:31)
[2024-06-06] MEDS: POLYETHYLENE GLYCOL (HEALTHYLAX) 3350 17 GM PACKET PO SCH (11:32)
[2024-06-06 12:46] LABS: BASO % 0.5 % (0-2.0); HEMATOCRIT 32.6 % (32.4-45.2); HEMOGLOBIN 10.3 GM/dL (10.7-15.3); LYMPH % 26.9 % (8-40); MCH 27.1 pg (25.7-33.7); MCHC 31.7 g/dl (32.0-36.0); MEAN CELL VOLUME 85.4 fl (80-96); MEAN PLT VOLUME 8.3 fl (7.5-11.1); MONO % 12.4 % (3.8-10.2); NEUT % 57.2 % (42.8-82.8); PLATELET COUNT 213 10^3/uL (134-434); RBC 3.82 M/mm3 (3.60-5.2); RDW 21.4 % (11.6-15.6); WHITE BLOOD COUNT 5.6 K/mm3 (4.0-10.0)
[2024-06-06 13:04] LABS: CALCIUM 8.9 mg/dL (8.5-10.1)
[2024-06-06 13:05] LABS: BLOOD UREA NITROGEN 18.4 mg/dL (7-18)
[2024-06-06 13:07] LABS: CREATININE 0.8 mg/dL (0.55-1.3)
[2024-06-06 13:09] LABS: BILIRUBIN,TOTAL 0.7 mg/dL (0.2-1); TOT PROT 6.5 g/dl (6.4-8.2)
[2024-06-06 13:55] LABS: ANISOCYTOSIS 1+; MACROCYTOSIS 0
[2024-06-07 09:01] VITALS: PULSE 75
[2024-06-07 15:09] LABS: BODY FLUID ALBUMIN 2.2 g/dL (Not Estab.); BODY FLUID ALBUMIN 2.3 g/dL (Not Estab.)
[2024-06-07 18:04] VITALS: BP 106/42; RESP 18; TEMP 97.9
== END 2024-06-07 18:30 | DRG 640 ==
LOC: JER 13:23 → JERBED 05-30 02:29 → OBSVTOIN 05-30 10:02 → JERBED 05-30 14:47 → J4S 05-30 15:48 → J6S 06-05 14:34
PROVIDERS: ADMIT Internal Medicine; ATTEND Family Medicine
PROC: 0W9G3ZX Drainage of Peritoneal Cavity, Percutaneous Approach, Diagnostic (ICD-10-PCS; principal; 2024-06-03)
DX: R62.7 Adult failure to thrive (principal); E43 Unspecified severe protein-calorie malnutrition; G93.41 Metabolic encephalopathy; R18.8 Other ascites; I50.32 Chronic diastolic (congestive) heart failure; E87.1 Hypo-osmolality and hyponatremia; I24.89 Other forms of acute ischemic heart disease; I47.10 Supraventricular tachycardia, unspecified; K92.1 Melena; Z68.1 Body mass index [BMI] 19.9 or less, adult; E78.5 Hyperlipidemia, unspecified; I48.91 Unspecified atrial fibrillation; Z79.01 Long term (current) use of anticoagulants; I25.2 Old myocardial infarction; I11.0 Hypertensive heart disease with heart failure; I25.10 Atherosclerotic heart disease of native coronary artery without angina pectoris; E87.6 Hypokalemia; R79.89 Other specified abnormal findings of blood chemistry
CPT/HCPCS: 0241U-QW; 36415; 70450-TC; 70551-TC; 71045-TC-FY; 74177-TC; 76942-TC; 80048; 80053; 80162; 81003; 82042; 82150; 82272; 82465; 82803; 82945; 83605; 83615; 83735; 83880; 84100; 84157; 84439; 84443; 84478; 84484; 85025; 85027; 85610; 85730; 86850; 86900; 86901; 87070; 87075; 87086; 87205; 87635; 93005; 93010; 97116-GP; 97161-GP; 99285-25; G0378

== ENCOUNTER 2024-11-02 16:51 | Inpatient (IN) | payer OTHER ==
[2024-11-02 18:24] LABS: VENOUS BASE EXCESS -0.7 mmol/L (-2-2); VENOUS O2 SATURATION 71.2 % (70-80); VENOUS PCO2 53.1 mmHg (38-52); VENOUS PH 7.312 (7.310-7.410)
[2024-11-02 18:25] LABS: ABSOLUTE IMMATURE GRANULOCYTES 0.03 x10^3/uL (0.0-0.031); BASOPHILS # 0.04 x10^3/uL (0.01-0.08); HEMATOCRIT 39.9 % (34.1-44.9); HEMOGLOBIN 11.9 g/dL (11.2-15.7); MCHC 29.8 g/dl (32.2-35.5); MEAN CELL VOLUME 88.1 fl (79.4-94.8); MEAN PLT VOLUME 11.2 fl (9.4-12.3); MONOCYTE # 0.56 x10^3/uL (0.24-0.86); MONOCYTE % 8.2 % (4.7-12.5); PLATELET COUNT 167 x10^3/uL (182-369); RDW 18.1 % (12.5-17.0)
[2024-11-02] MEDS: LACTATED RINGERS SOLUTION 1000 ML INFUS.BAG IV ONE ×2 (18:40→18:50)
[2024-11-02] MEDS: SODIUM CHLORIDE 0.9% 500 ML INFUS.BAG IV ONE ×2 (18:51→23:44)
[2024-11-02 19:01] LABS: CHLORIDE 101 mmol/L (98-107); SODIUM 136 mmol/L (136-145)
[2024-11-02 19:03] LABS: CALCIUM 9.6 mg/dL (8.5-10.1)
[2024-11-02 19:04] LABS: ALBUMIN 3.8 g/dl (3.4-5.0); CO2 28 mmol/L (21-32); GLUCOSE,RANDOM 132 mg/dL (74-106); MAGNESIUM 2.1 mg/dL (1.8-2.4)
[2024-11-02 19:07] LABS: CREATININE 1.2 mg/dL (0.55-1.3); SGOT/AST 105 U/L (15-37); SGPT/ALT 37 U/L (13-61)
[2024-11-02 19:08] LABS: BILIRUBIN,TOTAL 0.9 mg/dL (0.2-1); PHOSPHOROUS 5.5 mg/dL (2.5-4.9)
[2024-11-02 19:09] LABS: TOT PROT 8.2 g/dl (6.4-8.2)
[2024-11-02 19:10] LABS: ALK PHOS 86 U/L (45-117)
[2024-11-02 19:13] LABS: ANION GAP 7 mmol/L (4-13); LACTIC ACID 3.9 mmol/L (0.4-2.0); POTASSIUM 6.6 mmol/L (3.5-5.1)
[2024-11-02] MEDS ORDERED: PIPERACILLIN/TAZOB 4.5 GM 4.5 GM/100 ML BAG IVPB ONE (19:34)
[2024-11-02] MEDS: PIPERACILLIN/TAZOB 4.5 GM 4.5 GM in DEXTROSE 5%-WATER 100 ML IVPB ONE (19:42)
[2024-11-02] MEDS ORDERED: VANCOMYCIN 1 GM PREMIX (F) 1 GM/200 ML BAG ONE (20:10)
[2024-11-02 20:22] LABS: EPI CELLS >36 /uL (0-25.1); HYALINE CASTS 2 /uL (0-3.1); PH,URINE 5.5 (5.0-8.0); URINE APPEARANCE CLOUDY; URINE BACTERIA 286 /uL (0-1359); URINE BILIRUBIN NEGATIVE (NEGATIVE); URINE COLOR DK YELLOW; URINE GLUCOSE (UA) NEGATIVE (NEGATIVE); URINE KETONE TRACE (NEGATIVE); URINE LEUK ESTERASE NEGATIVE (NEGATIVE); URINE NITRITE NEGATIVE (NEGATIVE); URINE PROTEIN 3+ (NEGATIVE); URINE RBC 1497 /uL (0-23.9); URINE WBC 48 /uL (0-25.8)
[2024-11-02] MEDS: VANCOMYCIN 1,000 MG in DEXTROSE 5%-WATER - 250 ML IVPB ONE (21:33)
[2024-11-02 21:35] LABS: INR 2.3 (0.83-1.09); PROTHROMBIN TIME (PATIENT) 25.3 SEC (9.7-13.0)
[2024-11-02 21:37] LABS: ACTIVATED PTT 34.7 SECONDS (25.2-36.5)
[2024-11-02 21:49] LABS: POTASSIUM 4.6 mmol/L (3.5-5.1)
[2024-11-02 21:53] LABS: CALCIUM 9.6 mg/dL (8.5-10.1)
[2024-11-02 21:54] LABS: BLOOD UREA NITROGEN 18.2 mg/dL (7-18)
[2024-11-02 21:57] LABS: CREATININE 1.1 mg/dL (0.55-1.3)
[2024-11-03 02:20] LABS: LACTIC ACID 2.2 mmol/L (0.4-2.0)
[2024-11-03] MEDS: PIPERACILLIN/TAZOB 2.25 GM 2.25 GM in DEXTROSE 5%-WATER - 50 ML IVPB SCH ×2 (07:06→14:22)
[2024-11-03 07:53] LABS: CALCIUM 9.6 mg/dL (8.5-10.1)
[2024-11-03 07:54] LABS: BLOOD UREA NITROGEN 19.2 mg/dL (7-18)
[2024-11-03 07:57] LABS: CREATININE 1.1 mg/dL (0.55-1.3); PHOSPHOROUS 6.2 mg/dL (2.5-4.9)
[2024-11-03] MEDS: APIXABAN 2.5 MG TABLET PO SCH (10:09)
[2024-11-03] MEDS: VANCOMYCIN/WATER FOR INJ (PEG) 1 GM/200 ML BAG IVPB SCH (10:09)
[2024-11-03] MEDS: FUROSEMIDE 40 MG TABLET (FP) PO SCH (10:09)
[2024-11-03] MEDS: DIGOXIN 0.125 MG TABLET PO SCH (10:09)
[2024-11-03] MEDS: METOPROLOL TARTRATE 50 MG TABLET (FP) PO SCH (10:09)
[2024-11-03 10:50] LABS: ABSOLUTE IMMATURE GRANULOCYTES 0.03 x10^3/uL (0.0-0.031); BASOPHILS # 0.06 x10^3/uL (0.01-0.08); EOSINOPHIL % 0.1 % (0.7-5.8); EOSINOPHILS # 0.01 x10^3/uL (0.04-0.36); HEMATOCRIT 40.6 % (34.1-44.9); HEMOGLOBIN 11.5 g/dL (11.2-15.7); MCHC 28.3 g/dl (32.2-35.5); MEAN CELL VOLUME 92.9 fl (79.4-94.8); MEAN PLT VOLUME 9.9 fl (9.4-12.3); MONOCYTE # 1.12 x10^3/uL (0.24-0.86); MONOCYTE % 13.2 % (4.7-12.5); PLATELET COUNT 167 x10^3/uL (182-369); RDW 17.4 % (12.5-17.0)
[2024-11-03] MEDS: VANCOMYCIN 1 GM PREMIX (F) 1 GM/200 ML BAG IVPB SCH (14:23)
[2024-11-03] MEDS: PIPERACILLIN/TAZOB 3.375 GM 50 ML IVPB SCH (17:24)
[2024-11-03] MEDS: ATORVASTATIN CA 40 MG TABLET (FP) PO SCH (21:33)
[2024-11-04] MEDS: D5-1/2NS+20 MEQ KCL - 20 MEQ/1,000 ML INFUS.BAG IV SCH (11:44)
[2024-11-04] MEDS: ACETAMINOPHEN 325 MG TABLET (FP) PO ONE (21:36)
[2024-11-04] MEDS: METOPROLOL TARTRATE 25 MG TABLET (FP) PO SCH (21:37)
[2024-11-07 05:55] LABS: ARTERIAL BLD GAS O2 SATURATION 73.5 % (95-98); ARTERIAL BLOOD GAS BASE EXCESS -1.8 mmol/L (-2-2); ARTERIAL BLOOD GAS PO2 43.4 mmHg (80-100); ARTERIAL BLOOD GAS pH 7.296 (7.350-7.450)
[2024-11-07 05:56] LABS: ALLENS TEST POSITIVE
[2024-11-07 08:21] LABS: ABSOLUTE IMMATURE GRANULOCYTES 0.03 x10^3/uL (0.0-0.031); BASOPHILS # 0.02 x10^3/uL (0.01-0.08); HEMOGLOBIN 13.4 g/dL (11.2-15.7); MEAN CELL VOLUME 92.6 fl (79.4-94.8)
[2024-11-07 08:22] LABS: EOSINOPHIL % 0.3 % (0.7-5.8); EOSINOPHILS # 0.02 x10^3/uL (0.04-0.36); HEMATOCRIT 47.5 % (34.1-44.9); MCHC 28.2 g/dl (32.2-35.5); MEAN PLT VOLUME 10.2 fl (9.4-12.3); MONOCYTE # 0.59 x10^3/uL (0.24-0.86); MONOCYTE % 7.8 % (4.7-12.5); PLATELET COUNT 113 x10^3/uL (182-369); RDW 17.6 % (12.5-17.0)
[2024-11-07 08:38] LABS: POTASSIUM 4.3 mmol/L (3.5-5.1)
[2024-11-07 08:41] LABS: CALCIUM 9.3 mg/dL (8.5-10.1)
[2024-11-07 08:46] LABS: ALBUMIN 3.9 g/dl (3.4-5.0); BILIRUBIN,TOTAL 0.8 mg/dL (0.2-1); CREATININE 4.2 mg/dL (0.55-1.3); TOT PROT 8.6 g/dl (6.4-8.2)
[2024-11-07 08:58] LABS: BLOOD UREA NITROGEN 52.6 mg/dL (7-18)
[2024-11-07 10:32] LABS: N-TERMINAL BNP 116620.2 pg/ml (5-450)
[2024-11-07] MEDS ORDERED: VASopressin 40 UNITS/100 ML BAG IV SCH (12:15)
[2024-11-07 13:52] LABS: HEMATOCRIT 33.2 % (34.1-44.9); HEMOGLOBIN 9.7 g/dL (11.2-15.7); MCHC 29.2 g/dl (32.2-35.5); MEAN CELL VOLUME 91.2 fl (79.4-94.8); MEAN PLT VOLUME 11.1 fl (9.4-12.3); PLATELET COUNT 102 x10^3/uL (182-369); RDW 17.3 % (12.5-17.0)
[2024-11-07 14:06] LABS: INR 1.45 (0.83-1.09); PROTHROMBIN TIME (PATIENT) 15.8 SEC (9.7-13.0)
[2024-11-07 14:09] LABS: ACTIVATED PTT 30.6 SECONDS (25.2-36.5)
[2024-11-07 14:13] LABS: POTASSIUM 3.8 mmol/L (3.5-5.1)
[2024-11-07 14:15] LABS: CALCIUM 8.4 mg/dL (8.5-10.1)
[2024-11-07 14:16] LABS: BLOOD UREA NITROGEN 52.2 mg/dL (7-18); MAGNESIUM 2.1 mg/dL (1.8-2.4)
[2024-11-07 14:19] LABS: CREATININE 4.3 mg/dL (0.55-1.3)
[2024-11-07 14:20] LABS: BILIRUBIN,TOTAL 0.8 mg/dL (0.2-1); PHOSPHOROUS 8.1 mg/dL (2.5-4.9)
[2024-11-07 14:21] LABS: ALBUMIN 2.9 g/dl (3.4-5.0); TOT PROT 6.3 g/dl (6.4-8.2)
[2024-11-07 15:16] LABS: LACTIC ACID 4.1 mmol/L (0.4-2.0)
[2024-11-07 15:45] VITALS: BMI 26.1
[2024-11-07] MEDS: FENTANYL NS IVPB 500 MCG/100 ML BAG IVPB SCH (16:34)
[2024-11-07] MEDS: DEXTROSE 50%-WATER 25 GM/50 ML DISP.SYRIN IVPUSH ONE (16:38)
[2024-11-07] MEDS: PIPERACILLIN/TAZOB 3.375 GM 3.375 GM in DEXTROSE 5%-WATER - 50 ML IVPB SCH (18:59)
[2024-11-07 19:07] LABS: ARTERIAL BLD GAS O2 SATURATION 99.5 % (95-98); ARTERIAL BLOOD GAS BASE EXCESS -0.2 mmol/L (-2-2); ARTERIAL BLOOD GAS PO2 213.7 mmHg (80-100); ARTERIAL BLOOD GAS pH 7.478 (7.350-7.450); O2 CONTENT 1.57 % vol
[2024-11-07 19:14] LABS: VENT MODE A/C; VENT RATE 20
[2024-11-07] MEDS: LACTATED RINGERS SOLUTION 1,000 ML/1,000 ML INFUS.BAG IV SCH (20:02)
[2024-11-07] MEDS: NOREPINEPHRINE BITARTRATE/D5W 8 MG/250 ML BAG IVPB SCH (20:03)
[2024-11-07 20:44] LABS: PLATELET COUNT 101 x10^3/uL (182-369); RDW 17.3 % (12.5-17.0)
[2024-11-07 20:46] LABS: HEMATOCRIT 31.5 % (34.1-44.9); HEMOGLOBIN 9.9 g/dL (11.2-15.7); MCHC 31.4 g/dl (32.2-35.5); MEAN CELL VOLUME 86.1 fl (79.4-94.8); MEAN PLT VOLUME 10.7 fl (9.4-12.3)
[2024-11-07 21:08] LABS: POTASSIUM 3.3 mmol/L (3.5-5.1)
[2024-11-07 21:10] LABS: ALBUMIN 2.9 g/dl (3.4-5.0); BLOOD UREA NITROGEN 58.3 mg/dL (7-18); CALCIUM 8.5 mg/dL (8.5-10.1); MAGNESIUM 2.1 mg/dL (1.8-2.4)
[2024-11-07 21:14] LABS: CREATININE 4.5 mg/dL (0.55-1.3); PHOSPHOROUS 5.8 mg/dL (2.5-4.9)
[2024-11-07 21:15] LABS: BILIRUBIN,TOTAL 0.9 mg/dL (0.2-1)
[2024-11-07 21:16] LABS: TOT PROT 6.3 g/dl (6.4-8.2)
[2024-11-07 21:35] LABS: LACTIC ACID 2.3 mmol/L (0.4-2.0)
[2024-11-07 21:35] LABS: N-TERMINAL BNP 148856.8 pg/ml (5-450)
[2024-11-07] MEDS: KCL 10 MEQ IVPB 10 MEQ/100 ML INFUS.BAG IVPB SCH (21:53)
[2024-11-07] MEDS: BUMETANIDE INJECTION 1 MG/4 ML VIAL IVPUSH ONE (21:53)
[2024-11-08 06:57] LABS: RDW 17.5 % (12.5-17.0)
[2024-11-08 06:59] LABS: HEMATOCRIT 34.5 % (34.1-44.9); HEMOGLOBIN 10.7 g/dL (11.2-15.7); MEAN PLT VOLUME 10.5 fl (9.4-12.3); PLATELET COUNT 109 x10^3/uL (182-369)
[2024-11-08 07:27] LABS: CALCIUM 9.1 mg/dL (8.5-10.1)
[2024-11-08 07:28] LABS: ALBUMIN 3.1 g/dl (3.4-5.0); BLOOD UREA NITROGEN 60.1 mg/dL (7-18); MAGNESIUM 2.1 mg/dL (1.8-2.4)
[2024-11-08 07:30] LABS: CREATININE 4.6 mg/dL (0.55-1.3)
[2024-11-08 07:32] LABS: BILIRUBIN,TOTAL 0.9 mg/dL (0.2-1); PHOSPHOROUS 6.3 mg/dL (2.5-4.9); TOT PROT 6.7 g/dl (6.4-8.2)
[2024-11-08] MEDS ORDERED: NOREPINEPHRINE BITARTRATE 4 MG/4 ML ML IV ONE (11:08)
[2024-11-08 12:17] LABS: ARTERIAL BLD GAS O2 SATURATION 94.7 % (95-98); ARTERIAL BLOOD GAS BASE EXCESS -5.5 mmol/L (-2-2); ARTERIAL BLOOD GAS PO2 77.4 mmHg (80-100); ARTERIAL BLOOD GAS pH 7.334 (7.350-7.450); O2 CONTENT 1.55 % vol
[2024-11-08 12:22] LABS: ALLENS TEST POSITIVE; VENT MODE VAC
[2024-11-08 12:23] LABS: VENT RATE 12
[2024-11-08 14:55] LABS: EPI CELLS >36 /uL (0-25.1); HYALINE CASTS 10 /uL (0-3.1); URINE APPEARANCE TURBID; URINE BILIRUBIN NEGATIVE (NEGATIVE); URINE COLOR RED; URINE GLUCOSE (UA) NEGATIVE (NEGATIVE); URINE KETONE NEGATIVE (NEGATIVE); URINE LEUK ESTERASE 1+ (NEGATIVE); URINE NITRITE NEGATIVE (NEGATIVE); URINE PROTEIN 4+ (NEGATIVE); URINE UROBILINOGEN 0.2 mg/dL (0.2-1.0); URINE WBC 488 /uL (0-25.8)
[2024-11-08] MEDS: OCULAR LUBRICANT OPHTHALMIC OINTMENT 7 GM TUBE OU SCH (15:00)
[2024-11-08 15:11] LABS: URINE BACTERIA 39 /uL (0-1359); URINE RBC 18497 /uL (0-23.9)
[2024-11-08 15:12] LABS: YEAST moderate (NEGATIVE)
[2024-11-08] MEDS: DEXTROSE 5%-LACTATED RINGERS 1,000 ML IV SCH (16:00)
[2024-11-09 07:08] LABS: EOSINOPHIL % 0.1 % (0.7-5.8); EOSINOPHILS # 0.01 x10^3/uL (0.04-0.36)
[2024-11-09 07:10] LABS: ABSOLUTE IMMATURE GRANULOCYTES 0.09 x10^3/uL (0.0-0.031); BASOPHILS # 0.02 x10^3/uL (0.01-0.08); HEMATOCRIT 34.5 % (34.1-44.9); HEMOGLOBIN 10.9 g/dL (11.2-15.7); MCHC 31.6 g/dl (32.2-35.5); MONOCYTE # 1.04 x10^3/uL (0.24-0.86); MONOCYTE % 7.8 % (4.7-12.5); PLATELET COUNT 106 x10^3/uL (182-369); RDW 17.8 % (12.5-17.0)
[2024-11-09 07:28] LABS: POTASSIUM 4.5 mmol/L (3.5-5.1)
[2024-11-09 07:33] LABS: ALBUMIN 2.8 g/dl (3.4-5.0); BLOOD UREA NITROGEN 65.5 mg/dL (7-18); CALCIUM 8.9 mg/dL (8.5-10.1); MAGNESIUM 2.1 mg/dL (1.8-2.4)
[2024-11-09 07:37] LABS: CREATININE 4.9 mg/dL (0.55-1.3)
[2024-11-09 07:38] LABS: BILIRUBIN,TOTAL 0.9 mg/dL (0.2-1); TOT PROT 6.6 g/dl (6.4-8.2)
[2024-11-09 09:30] LABS: ARTERIAL BLD GAS O2 SATURATION 97.5 % (95-98); ARTERIAL BLOOD GAS BASE EXCESS -4.7 mmol/L (-2-2); ARTERIAL BLOOD GAS PO2 100.4 mmHg (80-100); ARTERIAL BLOOD GAS pH 7.381 (7.350-7.450)
[2024-11-09 09:35] LABS: VENT MODE A/C; VENT RATE 12
[2024-11-09 09:53] LABS: LACTIC ACID 3.2 mmol/L (0.4-2.0)
[2024-11-09] MEDS: PANTOPRAZOLE SODIUM 40 MG VIAL IVPUSH SCH (10:20)
[2024-11-09 13:49] LABS: PHOSPHOROUS 6.9 mg/dL (2.5-4.9)
[2024-11-10 07:37] LABS: BASOPHILS # 0.02 x10^3/uL (0.01-0.08)
[2024-11-10 07:38] LABS: ABSOLUTE IMMATURE GRANULOCYTES 0.06 x10^3/uL (0.0-0.031); EOSINOPHIL % 0.3 % (0.7-5.8); EOSINOPHILS # 0.04 x10^3/uL (0.04-0.36); HEMATOCRIT 29.8 % (34.1-44.9); HEMOGLOBIN 9.3 g/dL (11.2-15.7); MCHC 31.2 g/dl (32.2-35.5); MEAN CELL VOLUME 84.4 fl (79.4-94.8); MEAN PLT VOLUME 11.5 fl (9.4-12.3); MONOCYTE % 7.4 % (4.7-12.5); PLATELET COUNT 111 x10^3/uL (182-369); RDW 17.2 % (12.5-17.0)
[2024-11-10 08:02] LABS: POTASSIUM 4.1 mmol/L (3.5-5.1)
[2024-11-10 08:11] LABS: ALBUMIN 2.6 g/dl (3.4-5.0); BLOOD UREA NITROGEN 72.7 mg/dL (7-18); CALCIUM 9.1 mg/dL (8.5-10.1)
[2024-11-10 08:12] LABS: MAGNESIUM 2.1 mg/dL (1.8-2.4)
[2024-11-10 08:14] LABS: CREATININE 5.4 mg/dL (0.55-1.3)
[2024-11-10 08:16] LABS: BILIRUBIN,TOTAL 0.6 mg/dL (0.2-1); TOT PROT 6.2 g/dl (6.4-8.2)
[2024-11-10] MEDS ORDERED: LORazepam 2 MG/ML SDV VIAL ONE (10:37)
[2024-11-10] MEDS: LORazepam 2 MG/ML SDV VIAL IVPUSH ONE (10:40)
[2024-11-10] MEDS: METOLAZONE 2.5 MG TABLET (FP) GT ONE (12:08)
[2024-11-10] MEDS: BUMETANIDE INJECTION 1 MG/4 ML VIAL IVPUSH ONE (12:09)
[2024-11-10 16:29] LABS: MCHC 31.2 g/dl (32.2-35.5); RDW 17.9 % (12.5-17.0)
[2024-11-10 16:31] LABS: HEMATOCRIT 31.1 % (34.1-44.9); HEMOGLOBIN 9.7 g/dL (11.2-15.7); MEAN CELL VOLUME 85.7 fl (79.4-94.8); MEAN PLT VOLUME 11.9 fl (9.4-12.3); PLATELET COUNT 83 x10^3/uL (182-369)
[2024-11-11 07:03] LABS: ALBUMIN 2.4 g/dl (3.4-5.0); BLOOD UREA NITROGEN 79.1 mg/dL (7-18); CALCIUM 8.5 mg/dL (8.5-10.1)
[2024-11-11 07:04] LABS: MAGNESIUM 2.1 mg/dL (1.8-2.4)
[2024-11-11 07:07] LABS: CREATININE 5.9 mg/dL (0.55-1.3)
[2024-11-11 07:08] LABS: BILIRUBIN,TOTAL 0.7 mg/dL (0.2-1); TOT PROT 5.8 g/dl (6.4-8.2)
[2024-11-11 08:09] LABS: EOSINOPHIL % 0.2 % (0.7-5.8); EOSINOPHILS # 0.03 x10^3/uL (0.04-0.36)
[2024-11-11 08:11] LABS: ABSOLUTE IMMATURE GRANULOCYTES 0.06 x10^3/uL (0.0-0.031); BASOPHILS # 0.02 x10^3/uL (0.01-0.08); HEMATOCRIT 27.9 % (34.1-44.9); HEMOGLOBIN 8.8 g/dL (11.2-15.7); MCHC 31.5 g/dl (32.2-35.5); MEAN PLT VOLUME 11.1 fl (9.4-12.3); MONOCYTE # 0.97 x10^3/uL (0.24-0.86); MONOCYTE % 7.8 % (4.7-12.5); PLATELET COUNT 87 x10^3/uL (182-369); RDW 17.4 % (12.5-17.0)
[2024-11-11] MEDS ORDERED: RAPID SEQUENCE INTUBATION KIT NR ONE (08:39)
[2024-11-11 20:50] LABS: ABSOLUTE IMMATURE GRANULOCYTES 0.03 x10^3/uL (0.0-0.031); BASOPHILS # 0.02 x10^3/uL (0.01-0.08); EOSINOPHIL % 0.3 % (0.7-5.8); EOSINOPHILS # 0.04 x10^3/uL (0.04-0.36); HEMATOCRIT 29.8 % (34.1-44.9); HEMOGLOBIN 9.1 g/dL (11.2-15.7); MCHC 30.5 g/dl (32.2-35.5); MEAN CELL VOLUME 85.1 fl (79.4-94.8); MONOCYTE # 0.99 x10^3/uL (0.24-0.86); MONOCYTE % 8.5 % (4.7-12.5); PLATELET COUNT 105 x10^3/uL (182-369); RDW 17.6 % (12.5-17.0)
[2024-11-11] MEDS: PANTOPRAZOLE SODIUM 40 MG VIAL IVPUSH SCH (21:25)
[2024-11-12 06:58] LABS: ABSOLUTE IMMATURE GRANULOCYTES 0.06 x10^3/uL (0.0-0.031); BASOPHILS # 0.03 x10^3/uL (0.01-0.08); EOSINOPHIL % 0.4 % (0.7-5.8); EOSINOPHILS # 0.05 x10^3/uL (0.04-0.36); HEMATOCRIT 28.3 % (34.1-44.9); HEMOGLOBIN 8.7 g/dL (11.2-15.7); MCHC 30.7 g/dl (32.2-35.5); MEAN CELL VOLUME 84.5 fl (79.4-94.8); MEAN PLT VOLUME 11.6 fl (9.4-12.3); MONOCYTE # 0.86 x10^3/uL (0.24-0.86); MONOCYTE % 7.6 % (4.7-12.5); PLATELET COUNT 104 x10^3/uL (182-369); RDW 17.4 % (12.5-17.0)
[2024-11-12 07:27] LABS: POTASSIUM 3.9 mmol/L (3.5-5.1)
[2024-11-12 07:31] LABS: ALBUMIN 2.4 g/dl (3.4-5.0); BLOOD UREA NITROGEN 81.3 mg/dL (7-18); CALCIUM 8.7 mg/dL (8.5-10.1); MAGNESIUM 2.1 mg/dL (1.8-2.4)
[2024-11-12 07:35] LABS: CREATININE 6.3 mg/dL (0.55-1.3)
[2024-11-12 07:36] LABS: BILIRUBIN,TOTAL 0.8 mg/dL (0.2-1); TOT PROT 5.9 g/dl (6.4-8.2)
[2024-11-13 06:29] LABS: ARTERIAL BLD GAS O2 SATURATION 98.8 % (95-98); ARTERIAL BLOOD GAS BASE EXCESS -6.8 mmol/L (-2-2); ARTERIAL BLOOD GAS PO2 147.4 mmHg (80-100); ARTERIAL BLOOD GAS pH 7.329 (7.350-7.450); O2 CONTENT 1.48 % vol
[2024-11-13 06:50] LABS: POTASSIUM 3.9 mmol/L (3.5-5.1)
[2024-11-13 06:53] LABS: CALCIUM 8.9 mg/dL (8.5-10.1)
[2024-11-13 06:54] LABS: ALBUMIN 2.3 g/dl (3.4-5.0); BLOOD UREA NITROGEN 79.5 mg/dL (7-18); MAGNESIUM 2.1 mg/dL (1.8-2.4)
[2024-11-13 06:57] LABS: CREATININE 6.5 mg/dL (0.55-1.3); PHOSPHOROUS 7.5 mg/dL (2.5-4.9)
[2024-11-13 06:58] LABS: BILIRUBIN,TOTAL 0.7 mg/dL (0.2-1); TOT PROT 6.2 g/dl (6.4-8.2)
[2024-11-13 07:02] LABS: ABSOLUTE IMMATURE GRANULOCYTES 0.07 x10^3/uL (0.0-0.031); BASOPHILS # 0.03 x10^3/uL (0.01-0.08); EOSINOPHIL % 0.6 % (0.7-5.8); EOSINOPHILS # 0.07 x10^3/uL (0.04-0.36); HEMATOCRIT 30.6 % (34.1-44.9); HEMOGLOBIN 9.4 g/dL (11.2-15.7); MCHC 30.7 g/dl (32.2-35.5); MEAN CELL VOLUME 84.8 fl (79.4-94.8); MEAN PLT VOLUME 11.2 fl (9.4-12.3); MONOCYTE # 1.01 x10^3/uL (0.24-0.86); MONOCYTE % 8.3 % (4.7-12.5); PLATELET COUNT 111 x10^3/uL (182-369); RDW 17.8 % (12.5-17.0)
[2024-11-14 06:40] LABS: ARTERIAL BLD GAS O2 SATURATION 96.8 % (95-98); ARTERIAL BLOOD GAS BASE EXCESS -6.1 mmol/L (-2-2); ARTERIAL BLOOD GAS PO2 92.5 mmHg (80-100); ARTERIAL BLOOD GAS pH 7.349 (7.350-7.450); O2 CONTENT 1.88 % vol
[2024-11-14 06:47] LABS: VENT MODE A/C; VENT RATE 12
[2024-11-14 07:08] LABS: ABSOLUTE IMMATURE GRANULOCYTES 0.05 x10^3/uL (0.0-0.031); BASOPHILS # 0.03 x10^3/uL (0.01-0.08); EOSINOPHIL % 0.9 % (0.7-5.8); EOSINOPHILS # 0.09 x10^3/uL (0.04-0.36); HEMATOCRIT 28.3 % (34.1-44.9); HEMOGLOBIN 8.9 g/dL (11.2-15.7); MCHC 31.4 g/dl (32.2-35.5); MEAN CELL VOLUME 83.2 fl (79.4-94.8); MEAN PLT VOLUME 11.6 fl (9.4-12.3); MONOCYTE # 1.06 x10^3/uL (0.24-0.86); MONOCYTE % 10.2 % (4.7-12.5); PLATELET COUNT 117 x10^3/uL (182-369); RDW 17.9 % (12.5-17.0)
[2024-11-14 07:13] LABS: POTASSIUM 3.7 mmol/L (3.5-5.1)
[2024-11-14 07:19] LABS: ALBUMIN 2.3 g/dl (3.4-5.0); BLOOD UREA NITROGEN 85.9 mg/dL (7-18); MAGNESIUM 2.4 mg/dL (1.8-2.4)
[2024-11-14 07:22] LABS: BILIRUBIN,TOTAL 0.6 mg/dL (0.2-1); CREATININE 6.6 mg/dL (0.55-1.3)
[2024-11-14 07:23] LABS: PHOSPHOROUS 7.5 mg/dL (2.5-4.9); TOT PROT 5.9 g/dl (6.4-8.2)
[2024-11-14] MEDS: METOPROLOL TARTRATE 25 MG TABLET (FP) NGT SCH (09:04)
[2024-11-14] MEDS: APIXABAN 2.5 MG TABLET NGT SCH (09:04)
[2024-11-14] MEDS ORDERED: APIXABAN 2.5 MG TABLET PO SCH (10:00)
[2024-11-14] MEDS ORDERED: NOREPINEPHRINE BITARTRATE 4 MG/4 ML ML IV ONE (12:01)
[2024-11-14] MEDS: SODIUM CHLORIDE 0.9% 1000 ML INFUS.BAG IV ONE ×2 (12:18→21:18)
[2024-11-14] MEDS: SODIUM CHLORIDE 0.45% 1,000 ML IV SCH (21:13)
[2024-11-14] MEDS: ATORVASTATIN CA 40 MG TABLET (FP) NGT SCH (21:16)
[2024-11-15] MEDS: NOREPINEPHRINE BITARTRATE 4,000 MCG in DEXTROSE 5%-WATER - 496 ML IV SCH (00:05)
[2024-11-15 05:44] LABS: ARTERIAL BLD GAS O2 SATURATION 96.5 % (95-98); ARTERIAL BLOOD GAS BASE EXCESS -6.2 mmol/L (-2-2); ARTERIAL BLOOD GAS pH 7.365 (7.350-7.450); O2 CONTENT 1.62 % vol
[2024-11-15 05:46] LABS: VENT MODE A/C; VENT RATE 12
[2024-11-15 06:48] LABS: POTASSIUM 3.4 mmol/L (3.5-5.1)
[2024-11-15 06:54] LABS: CALCIUM 8.8 mg/dL (8.5-10.1)
[2024-11-15 06:55] LABS: ALBUMIN 2.3 g/dl (3.4-5.0); BLOOD UREA NITROGEN 86.4 mg/dL (7-18); MAGNESIUM 2.2 mg/dL (1.8-2.4)
[2024-11-15 06:58] LABS: CREATININE 6.5 mg/dL (0.55-1.3); PHOSPHOROUS 7.4 mg/dL (2.5-4.9)
[2024-11-15 06:59] LABS: BILIRUBIN,TOTAL 0.5 mg/dL (0.2-1); TOT PROT 6.2 g/dl (6.4-8.2)
[2024-11-15 07:01] LABS: ABSOLUTE IMMATURE GRANULOCYTES 0.07 x10^3/uL (0.0-0.031); BASOPHILS # 0.03 x10^3/uL (0.01-0.08); EOSINOPHIL % 0.4 % (0.7-5.8); EOSINOPHILS # 0.05 x10^3/uL (0.04-0.36); HEMATOCRIT 30.4 % (34.1-44.9); HEMOGLOBIN 9.4 g/dL (11.2-15.7); MCHC 30.9 g/dl (32.2-35.5); MEAN CELL VOLUME 83.1 fl (79.4-94.8); MEAN PLT VOLUME 11.5 fl (9.4-12.3); MONOCYTE # 1.03 x10^3/uL (0.24-0.86); MONOCYTE % 8.2 % (4.7-12.5); PLATELET COUNT 146 x10^3/uL (182-369); RDW 17.6 % (12.5-17.0)
[2024-11-15] MEDS: POTASSIUM CHLORIDE ORAL LIQUID 20 MEQ/15 ML NGT ONE (08:55)
[2024-11-15] MEDS: SODIUM CHLORIDE 0.45% 1,000 ML IV SCH (10:09)
[2024-11-15 13:09] LABS: INR 1.39 (0.83-1.09); PROTHROMBIN TIME (PATIENT) 15.1 SEC (9.7-13.0)
[2024-11-15] MEDS ORDERED: ATROPINE SULFATE 1 MG/10 ML DISP.SYRIN ONE (17:10)
[2024-11-16 06:27] LABS: ABSOLUTE IMMATURE GRANULOCYTES 0.05 x10^3/uL (0.0-0.031); BASOPHILS # 0.03 x10^3/uL (0.01-0.08); EOSINOPHIL % 0.8 % (0.7-5.8); EOSINOPHILS # 0.09 x10^3/uL (0.04-0.36); HEMATOCRIT 29.7 % (34.1-44.9); HEMOGLOBIN 9.5 g/dL (11.2-15.7); MEAN CELL VOLUME 81.4 fl (79.4-94.8); MONOCYTE # 0.87 x10^3/uL (0.24-0.86); MONOCYTE % 7.7 % (4.7-12.5); PLATELET COUNT 152 x10^3/uL (182-369)
[2024-11-16 06:29] LABS: POTASSIUM 3.4 mmol/L (3.5-5.1)
[2024-11-16 06:32] LABS: CALCIUM 9.1 mg/dL (8.5-10.1)
[2024-11-16 06:33] LABS: ALBUMIN 2.2 g/dl (3.4-5.0); BLOOD UREA NITROGEN 81.9 mg/dL (7-18); MAGNESIUM 2.1 mg/dL (1.8-2.4)
[2024-11-16 06:36] LABS: CREATININE 6.2 mg/dL (0.55-1.3); PHOSPHOROUS 6.5 mg/dL (2.5-4.9)
[2024-11-16 06:38] LABS: BILIRUBIN,TOTAL 0.4 mg/dL (0.2-1); TOT PROT 6.1 g/dl (6.4-8.2)
[2024-11-16] MEDS ORDERED: SEVELAMER CARBONATE 800 MG TAB (FP) NR SCH (08:00)
[2024-11-16] MEDS: SEVELAMER CARBONATE 0.8 GM POWDER PACKET GT SCH (09:46)
[2024-11-16] MEDS: KCL 10 MEQ IVPB 10 MEQ/100 ML INFUS.BAG IVPB SCH (09:47)
[2024-11-17] MEDS ORDERED: MIDAZOLAM IN 0.9 % SOD.CHLORID 100 MG/100 ML PLAST..BAG IVPB SCH (10:00)
[2024-11-17] MEDS: ROCURONIUM BROMIDE 100 MG/10 ML VIAL IV ONE (14:29)
[2024-11-17] MEDS: PROPOFOL 1,000,000 MCG/100 ML VIAL IVPB SCH (14:29)
[2024-11-17] MEDS: MIDAZOLAM HCL 5 MG/1 ML Single Dose Vial IVPUSH ONE (14:29)
[2024-11-17 15:44] LABS: ABSOLUTE IMMATURE GRANULOCYTES 0.07 x10^3/uL (0.0-0.031); BASOPHILS # 0.02 x10^3/uL (0.01-0.08); EOSINOPHIL % 0.8 % (0.7-5.8); HEMATOCRIT 32.2 % (34.1-44.9); HEMOGLOBIN 10.3 g/dL (11.2-15.7); MEAN CELL VOLUME 81.7 fl (79.4-94.8); MEAN PLT VOLUME 10.9 fl (9.4-12.3); MONOCYTE # 0.57 x10^3/uL (0.24-0.86); MONOCYTE % 4.6 % (4.7-12.5); PLATELET COUNT 175 x10^3/uL (182-369); RDW 18.4 % (12.5-17.0)
[2024-11-17 16:15] LABS: POTASSIUM 3.2 mmol/L (3.5-5.1)
[2024-11-17 16:18] LABS: BLOOD UREA NITROGEN 82.4 mg/dL (7-18); CALCIUM 8.7 mg/dL (8.5-10.1); MAGNESIUM 2.4 mg/dL (1.8-2.4)
[2024-11-17 16:19] LABS: ALBUMIN 2.2 g/dl (3.4-5.0)
[2024-11-17 16:21] LABS: CREATININE 5.3 mg/dL (0.55-1.3)
[2024-11-17 16:23] LABS: BILIRUBIN,TOTAL 0.4 mg/dL (0.2-1); TOT PROT 6.5 g/dl (6.4-8.2)
[2024-11-18 07:03] LABS: POTASSIUM 3.1 mmol/L (3.5-5.1)
[2024-11-18 07:10] LABS: ALBUMIN 1.9 g/dl (3.4-5.0); BLOOD UREA NITROGEN 77.8 mg/dL (7-18); MAGNESIUM 1.9 mg/dL (1.8-2.4)
[2024-11-18 07:12] LABS: CALCIUM 8.5 mg/dL (8.5-10.1)
[2024-11-18 07:13] LABS: CREATININE 4.9 mg/dL (0.55-1.3); PHOSPHOROUS 4.3 mg/dL (2.5-4.9)
[2024-11-18 07:14] LABS: HEMATOCRIT 30.4 % (34.1-44.9); HEMOGLOBIN 9.4 g/dL (11.2-15.7); MCHC 30.9 g/dl (32.2-35.5); MEAN CELL VOLUME 82.2 fl (79.4-94.8); MEAN PLT VOLUME 11.4 fl (9.4-12.3); PLATELET COUNT 175 x10^3/uL (182-369); RDW 18.1 % (12.5-17.0)
[2024-11-18 07:15] LABS: BILIRUBIN,TOTAL 0.4 mg/dL (0.2-1); TOT PROT 5.8 g/dl (6.4-8.2)
[2024-11-18] MEDS: POTASSIUM CHLORIDE ORAL LIQUID 20 MEQ/15 ML NGT ONE (11:29)
[2024-11-19 07:19] LABS: HEMOGLOBIN 9.7 g/dL (11.2-15.7); INR 1.27 (0.83-1.09); MCHC 31.3 g/dl (32.2-35.5); MEAN CELL VOLUME 81.6 fl (79.4-94.8); MEAN PLT VOLUME 11.8 fl (9.4-12.3); PLATELET COUNT 207 x10^3/uL (182-369); RDW 18.1 % (12.5-17.0)
[2024-11-19 07:36] LABS: POTASSIUM 3.6 mmol/L (3.5-5.1)
[2024-11-19 08:00] LABS: CALCIUM 8.9 mg/dL (8.5-10.1)
[2024-11-19 08:01] LABS: ALBUMIN 2.1 g/dl (3.4-5.0)
[2024-11-19 08:04] LABS: BLOOD UREA NITROGEN 82.1 mg/dL (7-18); CREATININE 4.7 mg/dL (0.55-1.3)
[2024-11-19 08:05] LABS: BILIRUBIN,TOTAL 0.4 mg/dL (0.2-1); TOT PROT 6.3 g/dl (6.4-8.2)
[2024-11-19] MEDS: POTASSIUM CHLORIDE ORAL LIQUID 20 MEQ/15 ML NGT ONE (10:25)
[2024-11-20 06:50] LABS: HEMATOCRIT 29.2 % (34.1-44.9); HEMOGLOBIN 9.4 g/dL (11.2-15.7); MCHC 32.2 g/dl (32.2-35.5); MEAN CELL VOLUME 81.1 fl (79.4-94.8); MEAN PLT VOLUME 11.3 fl (9.4-12.3); PLATELET COUNT 185 x10^3/uL (182-369); RDW 18.2 % (12.5-17.0)
[2024-11-20 07:12] LABS: POTASSIUM 3.8 mmol/L (3.5-5.1)
[2024-11-20 07:24] LABS: ALBUMIN 1.9 g/dl (3.4-5.0); BLOOD UREA NITROGEN 80.2 mg/dL (7-18); CALCIUM 9.1 mg/dL (8.5-10.1)
[2024-11-20 07:26] LABS: BILIRUBIN,TOTAL 0.5 mg/dL (0.2-1); CREATININE 4.5 mg/dL (0.55-1.3); TOT PROT 5.8 g/dl (6.4-8.2)
[2024-11-20] MEDS: MIDODRINE HCL 5 MG TABLET PO SCH (21:12)
[2024-11-21 07:05] LABS: INR 1.41 (0.83-1.09); PROTHROMBIN TIME (PATIENT) 15.5 SEC (9.7-13.0)
[2024-11-21 07:10] LABS: HEMATOCRIT 29.9 % (34.1-44.9); HEMOGLOBIN 9.3 g/dL (11.2-15.7); MCHC 31.1 g/dl (32.2-35.5); MEAN CELL VOLUME 82.6 fl (79.4-94.8); MEAN PLT VOLUME 11.8 fl (9.4-12.3); PLATELET COUNT 186 x10^3/uL (182-369)
[2024-11-21 07:11] LABS: POTASSIUM 3.6 mmol/L (3.5-5.1)
[2024-11-21 07:20] LABS: ALBUMIN 1.9 g/dl (3.4-5.0); BLOOD UREA NITROGEN 82.3 mg/dL (7-18)
[2024-11-21 07:21] LABS: BILIRUBIN,TOTAL 0.4 mg/dL (0.2-1); CALCIUM 8.6 mg/dL (8.5-10.1); TOT PROT 5.8 g/dl (6.4-8.2)
[2024-11-21 07:23] LABS: CREATININE 4.4 mg/dL (0.55-1.3); PHOSPHOROUS 4.1 mg/dL (2.5-4.9)
[2024-11-21] MEDS ORDERED: ROCURONIUM BROMIDE 100 MG/10 ML VIAL ONE ×2 (09:08→09:27)
[2024-11-21] MEDS: MIDAZOLAM HCL 5 MG/1 ML Single Dose Vial IVPUSH ONE (09:22)
[2024-11-21] MEDS: ROCURONIUM BROMIDE 50 MG/5 ML VIAL IV ONE (09:25)
[2024-11-21] MEDS: METOPROLOL TARTRATE 5 MG/5 ML VIAL IVPUSH PRN (09:35)
[2024-11-21] MEDS ORDERED: MIDAZOLAM HCL 5 MG/1 ML Single Dose Vial ONE (09:35)
[2024-11-21] MEDS ORDERED: fentaNYL CITRATE 250 MCG/5 ML VIAL ONE (09:36)
[2024-11-21] MEDS: FENTANYL CITRATE/PF 50 MCG/ML VIAL IVPUSH ONE (09:40)
[2024-11-21] MEDS ORDERED: VANCOMYCIN ORAL SOLUTION 125 MG/2.5 ML PO SCH (18:00)
[2024-11-21] MEDS: VANCOMYCIN HCL 125 MG CAPSULE (RESTRICTED TO ID ONLY) PO SCH (19:20)
[2024-11-22 07:10] LABS: RDW 18.3 % (12.5-17.0)
[2024-11-22 07:11] LABS: HEMATOCRIT 29.9 % (34.1-44.9); HEMOGLOBIN 9.2 g/dL (11.2-15.7); MCHC 30.8 g/dl (32.2-35.5); MEAN CELL VOLUME 82.4 fl (79.4-94.8); MEAN PLT VOLUME 11.7 fl (9.4-12.3); PLATELET COUNT 197 x10^3/uL (182-369)
[2024-11-22 07:26] LABS: POTASSIUM 3.5 mmol/L (3.5-5.1)
[2024-11-22 07:35] LABS: ALBUMIN 1.9 g/dl (3.4-5.0)
[2024-11-22 07:36] LABS: BLOOD UREA NITROGEN 86.8 mg/dL (7-18); MAGNESIUM 1.9 mg/dL (1.8-2.4)
[2024-11-22 07:39] LABS: CREATININE 4.3 mg/dL (0.55-1.3); PHOSPHOROUS 4.3 mg/dL (2.5-4.9)
[2024-11-22 07:40] LABS: BILIRUBIN,TOTAL 0.4 mg/dL (0.2-1)
[2024-11-22] MEDS ORDERED: METOPROLOL TARTRATE 5 MG/5 ML VIAL IVPUSH PRN (16:09)
[2024-11-22] MEDS: MIDODRINE HCL 5 MG TABLET PO SCH (18:26)
[2024-11-22] MEDS: SEVELAMER CARBONATE 0.8 GM POWDER PACKET GT SCH (18:26)
[2024-11-22] MEDS: VANCOMYCIN HCL 125 MG CAPSULE (RESTRICTED TO ID ONLY) PO SCH (20:22)
[2024-11-22] MEDS: PANTOPRAZOLE SODIUM 40 MG VIAL IVPUSH SCH (21:17)
[2024-11-22] MEDS: ATORVASTATIN CA 40 MG TABLET (FP) NGT SCH (21:17)
[2024-11-22] MEDS: OCULAR LUBRICANT OPHTHALMIC OINTMENT 7 GM TUBE OU SCH (21:17)
[2024-11-22] MEDS: METOPROLOL TARTRATE 25 MG TABLET (FP) NGT SCH (21:18)
[2024-11-23 09:26] LABS: HEMATOCRIT 29.8 % (34.1-44.9); HEMOGLOBIN 9.4 g/dL (11.2-15.7); MCHC 31.5 g/dl (32.2-35.5); MEAN CELL VOLUME 82.1 fl (79.4-94.8); MEAN PLT VOLUME 11.3 fl (9.4-12.3); PLATELET COUNT 184 x10^3/uL (182-369); RDW 18.5 % (12.5-17.0)
[2024-11-23 09:56] LABS: POTASSIUM 3.3 mmol/L (3.5-5.1)
[2024-11-23 10:38] LABS: CALCIUM 9.1 mg/dL (8.5-10.1)
[2024-11-23 10:39] LABS: ALBUMIN 1.9 g/dl (3.4-5.0); BLOOD UREA NITROGEN 87.7 mg/dL (7-18)
[2024-11-23 10:42] LABS: BILIRUBIN,TOTAL 0.3 mg/dL (0.2-1); CREATININE 4.3 mg/dL (0.55-1.3)
[2024-11-23] MEDS: POTASSIUM CHLORIDE ORAL LIQUID 20 MEQ/15 ML PO ONE (12:25)
[2024-11-23] MEDS: VANCOMYCIN 250 MG/5 ML ORAL SOLUTION (RESTRICTED TO ID ONLY) PO SCH (19:55)
[2024-11-23] MEDS: VANCOMYCIN ORAL SOLUTION 125 MG/2.5 ML PO SCH (20:50)
[2024-11-24] MEDS: VANCOMYCIN ORAL SOLUTION 125 MG/2.5 ML GT SCH (00:30)
[2024-11-24] MEDS: MIDODRINE HCL 5 MG TABLET GT SCH (10:00)
[2024-11-24] MEDS: POTASSIUM CHLORIDE ORAL LIQUID 20 MEQ/15 ML PO ONE (17:56)
[2024-11-26 12:05] LABS: POTASSIUM 3.7 mmol/L (3.5-5.1)
[2024-11-26 12:08] LABS: CALCIUM 9.3 mg/dL (8.5-10.1)
[2024-11-26 12:09] LABS: BLOOD UREA NITROGEN 93.5 mg/dL (7-18)
[2024-11-26 12:12] LABS: CREATININE 4.2 mg/dL (0.55-1.3)
[2024-11-26 12:14] LABS: BILIRUBIN,TOTAL 0.4 mg/dL (0.2-1); TOT PROT 6.3 g/dl (6.4-8.2)
[2024-11-26] MEDS: SODIUM CHLORIDE 0.45%/POT 20 MEQ/1,000 ML INFUS.BAG IV SCH (13:39)
[2024-11-27 08:06] LABS: ABSOLUTE IMMATURE GRANULOCYTES 0.03 x10^3/uL (0.0-0.031); BASOPHILS # 0.03 x10^3/uL (0.01-0.08); EOSINOPHIL % 1.7 % (0.7-5.8); EOSINOPHILS # 0.14 x10^3/uL (0.04-0.36); HEMATOCRIT 28.5 % (34.1-44.9); HEMOGLOBIN 8.7 g/dL (11.2-15.7); MCHC 30.5 g/dl (32.2-35.5); MEAN CELL VOLUME 83.8 fl (79.4-94.8); MEAN PLT VOLUME 11.2 fl (9.4-12.3); MONOCYTE # 0.33 x10^3/uL (0.24-0.86); MONOCYTE % 3.9 % (4.7-12.5); PLATELET COUNT 144 x10^3/uL (182-369); RDW 18.6 % (12.5-17.0)
[2024-11-27 08:29] LABS: POTASSIUM 3.6 mmol/L (3.5-5.1)
[2024-11-27 08:38] LABS: BILIRUBIN,TOTAL 0.3 mg/dL (0.2-1); BLOOD UREA NITROGEN 95.8 mg/dL (7-18)
[2024-11-27 08:39] LABS: ALBUMIN 1.9 g/dl (3.4-5.0)
[2024-11-27 08:41] LABS: CALCIUM 8.7 mg/dL (8.5-10.1)
[2024-11-27 08:46] LABS: CREATININE 3.9 mg/dL (0.55-1.3)
[2024-11-27] MEDS: FAMOTIDINE 40 MG/5 ML ORAL SUSPENSION GT SCH (15:13)
[2024-11-28] MEDS: MIDODRINE HCL 2.5 MG TABLET GT SCH (13:37)
[2024-11-29] MEDS: FAMOTIDINE 20 MG/2.5 ML ORAL LIQUID GT SCH (09:42)
[2024-12-01 11:41] VITALS: BP 114/67; PULSE 104; RESP 16; TEMP 97.3
== END 2024-12-01 11:07 | disposition short-term general hospital (02) | DRG 4 ==
LOC: JER 16:51 → JERBED 19:30 → J4S 11-03 02:09 → JICU 11-07 11:41 → J5S 11-22 16:27
PROVIDERS: ADMIT Family Medicine; ATTEND Family Medicine
PROC: 5A1955Z Respiratory Ventilation, Greater than 96 Consecutive Hours (ICD-10-PCS; 2024-11-07)
PROC: 0BH17EZ Insertion of Endotracheal Airway into Trachea, Via Natural or Artificial Opening (ICD-10-PCS; 2024-11-07)
PROC: 03HY32Z Insertion of Monitoring Device into Upper Artery, Percutaneous Approach (ICD-10-PCS; 2024-11-07)
PROC: 4A133B1 Monitoring of Arterial Pressure, Peripheral, Percutaneous Approach (ICD-10-PCS; 2024-11-07)
PROC: 4A133J1 Monitoring of Arterial Pulse, Peripheral, Percutaneous Approach (ICD-10-PCS; 2024-11-07)
PROC: 05HM33Z Insertion of Infusion Device into Right Internal Jugular Vein, Percutaneous Approach (ICD-10-PCS; 2024-11-07)
PROC: B543ZZA Ultrasonography of Right Jugular Veins, Guidance (ICD-10-PCS; 2024-11-07)
PROC: 5A12012 Performance of Cardiac Output, Single, Manual (ICD-10-PCS; 2024-11-07)
PROC: 4A10X4Z Monitoring of Central Nervous Electrical Activity, External Approach (ICD-10-PCS; 2024-11-15)
PROC: 0B110F4 Bypass Trachea to Cutaneous with Tracheostomy Device, Open Approach (ICD-10-PCS; principal; 2024-11-21)
PROC: 0BJ08ZZ Inspection of Tracheobronchial Tree, Via Natural or Artificial Opening Endoscopic (ICD-10-PCS; 2024-11-21)
DX: J69.0 Pneumonitis due to inhalation of food and vomit (principal); A41.9 Sepsis, unspecified organism; I46.9 Cardiac arrest, cause unspecified; R65.21 Severe sepsis with septic shock; J96.01 Acute respiratory failure with hypoxia; J96.02 Acute respiratory failure with hypercapnia; I50.22 Chronic systolic (congestive) heart failure; R18.8 Other ascites; N17.9 Acute kidney failure, unspecified; E87.20 Acidosis, unspecified; I24.89 Other forms of acute ischemic heart disease; K92.1 Melena; G93.1 Anoxic brain damage, not elsewhere classified; I47.20 Ventricular tachycardia, unspecified; I48.91 Unspecified atrial fibrillation; K21.9 Gastro-esophageal reflux disease without esophagitis; I11.0 Hypertensive heart disease with heart failure; E78.5 Hyperlipidemia, unspecified; F03.90 Unspecified dementia, unspecified severity, without behavioral disturbance, psychotic disturbance, mood disturbance, and anxiety; E83.39 Other disorders of phosphorus metabolism; I73.9 Peripheral vascular disease, unspecified; Z95.2 Presence of prosthetic heart valve; D64.9 Anemia, unspecified; R62.7 Adult failure to thrive; I27.20 Pulmonary hypertension, unspecified; E87.6 Hypokalemia; L89.320 Pressure ulcer of left buttock, unstageable; L89.152 Pressure ulcer of sacral region, stage 2
CPT/HCPCS: 0241U-QW; 31500; 36415; 36600; 70450-TC; 71045-TC-FY; 71250-TC; 71275-TC; 74018-TC-FY; 74174-TC; 74176-TC; 76775-TC; 80048; 80053; 80162; 81003; 82272; 82436; 82570; 82728; 82803; 82962; 83540; 83550; 83605; 83735; 83880; 83935; 84100; 84133; 84300; 84466; 84484; 85025; 85027; 85610; 85730; 86850; 86900; 86901; 87040; 87070; 87077; 87086; 87186; 87205; 93005; 93010; 93306-TC; 93970-TC; 94002; 95816; 99285-25; Q9967